=== PATIENT | female | born 1980 | race Caucasian/White ===

== ENCOUNTER 2016-10-11 09:29 | Emergency (ER) | payer SELFPAY ==
[~2016-10-11] VITALS: Ht 157.5 cm; Wt 56.7 kg
[~2016-10-11 09:29] MED LIST: CODE118S2 PO; CYCL10TA9 PO; FLUT9.9S NSEACH; HYDR-1231 PO; LEVO500T2 PO; LORA-404 PO; NAPR-243 PO; NAPR-684 PO; SULF1TAB35 PO; Z PAK; Z-Pak
[2016-10-11 09:47] VITALS: BP 114/78
--- NOTE | 2016-10-11 11:59 | ED Neck-Back Pain/Injury ---
General Chief Complaint: Head/Cervical Problems Stated Complaint: NECK/RIGHT SHOULDER PAIN Nursing Triage Note: Pt c/o pain to R side of neck and shoulder x3-4 days. Pt reports pain has continued to get worse. Nursing Sepsis Screen: No Definite Risk Source of Information: Patient Exam Limitations: No Limitations History of Present Illness Time Seen by Provider: 11:59 Initial Comments 35-year-old female patient presents to the emergency department with complaints of bilateral shoulder and neck pain/muscle spasms. Onset 4 days ago. Denies known injury. 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 Has been under increased stress at work. Location: Paraspinous Muscles ((neck)) Timing/Duration: 3-4 Days, Getting Worse Pain/Injury Location: Upper Extremity (bilateral shoulders), Neck Radiation: Other (denies radiation) Method of Injury: Unknown Modifying Factors: Improves With Immobilization, Worse With Movement, Worse With Pain Medication (minimal improvement with Aleve taken at 0700 today.) Associated Symptoms: muscle spasms, No fever, No weakness, No numbness in legs/ feet, No tingling in legs/feet, No sensory/motor loss, No lower back pain, No loss of bladder control, No loss of bowel control Allergies and Home Medications Allergies Coded Allergies: No Known Drug Allergies (Unverified , 04/05/14) Home Medications Cyclobenzaprine HCl 10 Mg Tablet, 10 MG PO Q8H PRN for SPASMS, #14 Ref 0 Prescribed by: FLAVIA REDMAN on 10/11/16 1334 Fluticasone Propionate 9.9 Ml [place].susp, 2 SPRAYS(DNU) NSEACH DAILY, #1 Ref 11 Prescribed by: EDUARDO LIVINGSTON on 02/10/16 1159 Lorazepam 0.5 Mg Tablet, 0.5 MG PO BID PRN for ANXIETY, #10 Prescribed by: BLANCHE MILES on 01/14/16 1210 Prednisone 20 Mg Tab, 40 MG PO DAILY, #10 Ref 0 Prescribed by: FLAVIA REDMAN on 10/11/16 1334 Tramadol HCl 50 Mg Tablet, 50 MG PO Q4H PRN for PAIN, #14 Ref 0 Prescribed by: FLAVIA REDMAN on 10/11/16 1334 Constitutional: No chills, No diaphoresis, No fever, No malaise EENTM: no symptoms reported Respiratory: no symptoms reported Cardiovascular: no symptoms reported Gastrointestinal: no symptoms reported Genitourinary: no symptoms reported Musculoskeletal: No back pain, muscle pain (bilateral shoulders and neck), muscle stiffness (bilateral shoulders and neck), neck pain (paraspinous neck pain) Skin: No lesions, No lumps, No rash Psychiatric/Neurological: Denies Headache (intermittent mild headache. denies current headache. ), Denies Numbness, Denies Paresthesia, Denies Tingling, Denies Weakness All Other Systems Reviewed Negative Unless Noted: Yes (Negative excepted noted.) Past Cehwjxi-Aiwvbk-Mhvxpn Hx Patient Social History Alcohol Use: Occasionally Uses Recreational Drug Use: No Smoking Status: Current Everyday Smoker Type Used: Cigarettes Recent Foreign Travel: No Contact w/Someone Who Travel: No Recent Infectious Disease Expo: No Recent Hopitalizations: Yes (QUICK CARE VISIT) Immunizations Up To Date Tetanus Booster (TDap): Unknown Seasonal Allergies Seasonal Allergies: Yes Surgeries HX Surgeries: No Respiratory Hx Respiratory Disorders: Yes (asthma as child only, tobaccoism) Cardiovascular Hx Cardiac Disorders: No Neurological Hx Neurological Disorders: No Reproductive System Hx Reproductive Disorders: No Female Reproductive Disorders: Ovarian Cyst Genitourinary Hx Genitourinary Disorders: No Gastrointestinal Hx Gastrointestinal Disorders: No Musculoskeletal Hx Musculoskeletal Disorders: No Endocrine Hx Endocrine Disorders: No Endocrine Disorders: Adrenal Disease HEENT HX ENT Disorders: Yes (sinus infections) Cancer Hx Cancer: No Psychosocial Hx Psychiatric Problems: Yes (past hx anxiety with post- depression) Behavioral Health Disorders: Anxiety Integumentary HX Skin/Integumentary Disorder: No Blood Transfusions Hx Blood Disorders: No Reviewed Nursing Assessment Reviewed/Agree w Nursing PMH: Yes Family Medical History Significant Family History: Cancer, Diabetes Physical Exam Vital Signs Vital Sign - Last 12Hours 10/11/16 09:47 Temp 98.9 Pulse 70 Resp 18 B/P (MAP) 114/78 Pulse Ox 100 O2 Delivery Room Air Capillary Refill : Less Than 3 Seconds General Appearance: No Apparent Distress, WD/WN HEENT: PERRL/EOMI, Pharynx Normal Neck: Supple, Limited Range of Motion ((patient reports muscles "pulling" with all ROM.), Tender Lateral, No Tender Midline, Other (muscle spasm and tenderness posterior lateral neck.) Cardiovascular: Regular Rate, Rhythm, No Murmur, Normal Peripheral Pulses Respiratory: Lungs Clear, Normal Breath Sounds, No Respiratory Distress Back: Normal Inspection, No Vertebral Tenderness Extremity: Normal Capillary Refill, Normal Range of Motion, Other (bilateral superior shoulder tenderness with muscle spasm.) Neurologic/Psychiatric: Alert, Oriented x3, No Motor/Sensory Deficits, Normal 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, 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 Norm as Tested Skin: Normal Color, Warm/Dry Progress/Results/Core Measures Results/Orders Lab Results Laboratory Tests Test 10/11/16 11:27 Range/Units Urine Opiates Screen NEGATIVE NEGATIVE Urine Oxycodone Screen NEGATIVE NEGATIVE Urine Methadone Screen NEGATIVE NEGATIVE Urine Propoxyphene Screen NEGATIVE NEGATIVE Urine Barbiturates Screen NEGATIVE NEGATIVE Ur Tricyclic Antidepressants Screen NEGATIVE NEGATIVE Urine Phencyclidine Screen NEGATIVE NEGATIVE Urine Amphetamines Screen NEGATIVE NEGATIVE Urine Methamphetamines Screen NEGATIVE NEGATIVE Urine Benzodiazepines Screen NEGATIVE NEGATIVE Urine Cocaine Screen NEGATIVE NEGATIVE Urine Cannabinoids Screen NEGATIVE NEGATIVE My Orders Orders - FLAVIA REDMAN Urine Bedside (10/11/16 11:16) Drug Screen Stat (Urine) (10/11/16 11:19) Cyclobenzaprine Tablet (Flexeril Tablet) (10/11/16 12:17) Ketorolac Injection (Toradol Injection) (10/11/16 12:17) Cervical Spine 3 Views Or Less (10/11/16 12:17) Vital Signs/I&O Vital Sign - Last 12Hours 10/11/16 10/11/16 09:47 12:59 Temp 98.9 98.9 Pulse 70 Resp 18 B/P (MAP) 114/78 Pulse Ox 100 O2 Delivery Room Air Blood Pressure Mean: 90 Diagnostic Imaging Diagonstic Imaging: Xray Plain Films/CT/US/NM/MRI: c-spine Comments FINDINGS: The there is reversal of the lordotic curvature in the cervical spine. The alignment of the posterior spinal line however is satisfactory. The vertebral body heights and disc heights are preserved. There is suggestion of minimal posterior osteophyte formation at C5/6 level. The lateral masses of C1 and C2 have normal alignment. The pre-vertebral soft tissues appear unremarkable. IMPRESSION: Question of posterior osteophytes at C5/6 level is seen. If symptoms persist further evaluation with MRI of the cervical spine would be of benefit. Reversal of the lordotic curvature. Dictated by: Dictated on workstation # [id number] Reviewed: Reviewed by Me (radiology report reviewed by me) Departure Communication Progress Notes Diagnostic findings discussed with the patient. Patient reports feeling better with medications. Proceed with discharge to home. Patient ambulated from the emergency department without difficulty. Impression Impression: Primary Impression: [place], acute Disposition: 01 HOME, SELF-CARE Condition: Improved Departure-Patient Inst. Decision time for Depature: 12:30 Referrals: SACHI HONEYCUTT DO (PCP/Family) Primary Care Physician Patient Instructions: [place] (DC) Add. Discharge Instructions: All discharge instructions reviewed with patient and/or family. Voiced understanding. Medications as instructed. Tylenol Extra Strength [id number] as directed for pain. Ibuprofen 800 mg by mouth every 8 hours as needed for pain. Ice packs or a heating pad as needed for pain. No lifting, pushing, pulling, twisting, bending, climbing 7 days. Then increase activity slowly. Follow-up with Dr. Honeycutt if no improvement in symptoms in 7-10 days. Return to the emergency department for worsened pain, numbness, weakness, bowel incontinence, bladder incontinence, or any other concerns. Scripts Tramadol HCl (Tramadol HCl) 50 Mg Tablet 50 MG PO Q4H Y for PAIN, #14 TAB 0 Refills Prov: FLAVIA REDMAN 10/11/16 Cyclobenzaprine HCl (Cyclobenzaprine HCl) 10 Mg Tablet 10 MG PO Q8H Y for SPASMS, #14 TAB 0 Refills Prov: FLAVIA REDMAN 10/11/16 Prednisone (Prednisone) 20 Mg Tab 40 MG PO DAILY, #10 TAB 0 Refills Prov: FLAVIA REDMAN 10/11/16 Work/School Note: Work Release Form Date Seen in the Emergency Department: Oct 11, 2016 Return to Work: Oct 12, 2016 Other Restrictions Listed Below: no lifting, pushing, pulling, twisting, bending, or climbing x 7 days. FLAVIA REDMAN Oct 11, 2016 11:59
[2016-10-11] MEDS ORDERED: KETOROLAC 60 MG/2 ML VIAL IM STA (12:17)
[2016-10-11] MEDS ORDERED: CYCLOBENZAPRINE 10 MG (FLEXERIL) TAB PO STA (12:17)
--- NOTE | 2016-10-11 13:12 | Diagnostic Imaging Report ---
3 views of the cervical spine. INDICATION: Right-sided neck pain. COMPARISON: 04/05/14. FINDINGS: The there is reversal of the lordotic curvature in the cervical spine. The alignment of the posterior spinal line however is satisfactory. The vertebral body heights and disc heights are preserved. There is suggestion of minimal posterior osteophyte formation at C5/6 level. The lateral masses of C1 and C2 have normal alignment. The pre-vertebral soft tissues appear unremarkable. IMPRESSION: Question of posterior osteophytes at C5/6 level is seen. If symptoms persist further evaluation with MRI of the cervical spine would be of benefit. Reversal of the lordotic curvature. Dictated by: Dictated on workstation # [id number]
[2016-10-11] MEDS ORDERED: TRAM50TA2 PO (13:34)
[2016-10-11] MEDS ORDERED: PRD20T PO (13:34)
[2016-10-11] MEDS ORDERED: CYCL10TA9 PO (13:34)
--- OUTSIDE RECORDS SUMMARY | 2016-10-25 20:49 | XMS REPORT | Continuity of Care Document ---
Author Author [facility] Organization [facility] Address Unknown Phone Unavailable Allergies Active Description Code Type Severity Reaction Onset Reported/Identified Relationship to Patient Clinical Status Yes No Known Drug Allergies [id number] Drug Allergy Unknown N/ A 04/05/2014 Medications Problems Date Dx Coded Attending Type Code Diagnosis Diagnosed By 02/09/2014 BLANCHE MILES APRN Ot 845.00 02/09/2014 BLANCHE MILES APRN Ot E000.8 02/09/2014 BLANCHE MILES APRN Ot E006.1 02/09/2014 BLANCHE MILES APRN Ot E927.0 04/05/2014 FELIX DO, CORA K Ot 840.9 04/05/2014 FELIX DO, CORA K Ot 847.0 04/05/2014 FELIX DO, CORA K Ot 959.09 04/05/2014 FELIX DO, CORA K Ot E000.8 04/05/2014 FELIX DO, CORA K Ot E812.0 06/17/2014 FELIX DO, CORA K Ot 558.9 06/17/2014 FELIX DO, CORA K Ot 723.1 06/17/2014 FELIX DO, CORA K Ot 724.1 07/20/2014 CHIRAG OROZCO MD Ot 465.9 07/20/2014 CHIRAG OROZCO MD Ot 786.2 03/12/2015 CHIRAG OROZCO MD Ot 465.9 03/12/2015 CHIRAG OROZCO MD Ot 786.2 09/08/2015 BLANCHE MILES APRN Ot F17.210 NICOTINE DEPENDENCE, CIGARETTES, UNCOMPL 09/08/2015 BLANCHE MILES APRN Ot N39.0 URINARY TRACT INFECTION, SITE NOT SPECIF 01/14/2016 BLANCHE MILES APRN Ot F41.9 ANXIETY DISORDER, UNSPECIFIED 01/15/2016 BLANCHE MILES APRN Ot F41.9 ANXIETY DISORDER, UNSPECIFIED 02/04/2016 BLANCHE MILES APRN Ot F41.9 ANXIETY DISORDER, UNSPECIFIED 02/10/2016 EDUARDO WATKINS MD Ot F17.210 NICOTINE DEPENDENCE, CIGARETTES, UNCOMPL 02/10/2016 EDUARDO WATKINS MD Ot J01.01 ACUTE RECURRENT MAXILLARY SINUSITIS 02/10/2016 EDUARDO WATKINS MD Ot K11.7 DISTURBANCES OF SALIVARY SECRETION 02/10/2016 EDUARDO WATKINS MD Ot N39.0 URINARY TRACT INFECTION, SITE NOT SPECIF 02/10/2016 EDUARDO WATKINS MD Ot R53.1 WEAKNESS 02/10/2016 EDUARDO WATKINS MD Ot R53.83 OTHER FATIGUE 02/10/2016 EDUARDO WATKINS MD Ot R63.4 ABNORMAL WEIGHT LOSS 02/16/2016 EDUARDO WATKINS MD Ot F17.210 NICOTINE DEPENDENCE, CIGARETTES, UNCOMPL 02/16/2016 EDUARDO WATKINS MD Ot J01.81 OTHER ACUTE RECURRENT SINUSITIS 02/16/2016 EDUARDO WATKINS MD Ot J32.9 CHRONIC SINUSITIS, UNSPECIFIED 02/16/2016 EDUARDO WATKINS MD Ot J34.2 DEVIATED NASAL SEPTUM 02/16/2016 EDUARDO WATKINS MD Ot J34.89 OTHER SPECIFIED DISORDERS OF NOSE AND NA 02/17/2016 EDUARDO WATKINS MD Ot F17.210 NICOTINE DEPENDENCE, CIGARETTES, UNCOMPL 02/17/2016 EDUARDO WATKINS MD Ot J01.81 OTHER ACUTE RECURRENT SINUSITIS 02/17/2016 EDUARDO WATKINS MD Ot J32.9 CHRONIC SINUSITIS, UNSPECIFIED 02/17/2016 EDUARDO WATKINS MD Ot J34.2 DEVIATED NASAL SEPTUM 02/17/2016 EDUARDO WATKINS MD Ot J34.89 OTHER SPECIFIED DISORDERS OF NOSE AND NA 10/11/2016 FLAIVA ROACH Ot F17.210 NICOTINE DEPENDENCE, CIGARETTES, UNCOMPL 10/11/2016 FLAVIA ROACH Ot M43.6 TORTICOLLIS 10/11/2016 FLAVIA ROACH Ot M54.2 CERVICALGIA 10/12/2016 FLAVIA ROACH Ot F17.210 NICOTINE DEPENDENCE, CIGARETTES, UNCOMPL 10/12/2016 FLAVIA ROACH Ot M43.6 TORTICOLLIS 10/12/2016 FLAVIA ROACH Ot M54.2 CERVICALGIA Procedures Results Test Result Range Bacterial throat culture - 02/10/16 10:46 Bacterial throat culture NBS NRG Bacterial urine culture - 02/10/16 10:57 URINE CULTURE RESULTS MORE THAN 3 ISOLATES NRG Complete urinalysis with reflex to culture - 02/16/16 13:42 Urine color determination YELLOW NRG Urine clarity determination CLEAR NRG Urine pH measurement by test strip 6.5 5 -9 Specific gravity of urine by test strip 1.015 1.016-1.022 Urine protein assay by test strip, semi-quantitative NEGATIVE NEGATIVE Urine glucose detection by automated test strip NEGATIVE NEGATIVE Erythrocytes detection in urine sediment by light microscopy NEGATIVE NEGATIVE Urine ketones detection by automated test strip NEGATIVE NEGATIVE Urine nitrite detection by test strip NEGATIVE NEGATIVE Urine total bilirubin detection by test strip NEGATIVE NEGATIVE Urine urobilinogen measurement by automated test strip (mass/volume) NORMAL NORMAL Urine leukocyte esterase detection by dipstick 1+ NEGATIVE Automated urine sediment erythrocyte count by microscopy (number/high power field) NONE NRG Automated urine sediment leukocyte count by microscopy (number/high power field ) [HPF] NRG Bacteria detection in urine sediment by light microscopy NEGATIVE NRG Squamous epithelial cells detection in urine sediment by light microscopy 2-5 NRG Crystals detection in urine sediment by light microscopy NONE NRG Casts detection in urine sediment by light microscopy NONE NRG Mucus detection in urine sediment by light microscopy NEGATIVE NRG Complete urinalysis with reflex to culture NO NRG Urine drug screening test - 10/11/16 11:27 Urine phencyclidine detection by screening method NEGATIVE NEGATIVE Urine benzodiazepines detection by screening method NEGATIVE NEGATIVE Urine cocaine detection NEGATIVE NEGATIVE Urine amphetamines detection by screening method NEGATIVE NEGATIVE Urine methamphetamine detection by screening method NEGATIVE NEGATIVE Urine cannabinoids detection by screening method NEGATIVE NEGATIVE Urine opiates detection by screening method NEGATIVE NEGATIVE Urine barbiturates detection NEGATIVE NEGATIVE Screening urine tricyclic antidepressants detection NEGATIVE NEGATIVE Urine methadone detection by screening method NEGATIVE NEGATIVE Urine oxycodone detection NEGATIVE NEGATIVE Urine propoxyphene detection NEGATIVE NEGATIVE Encounters ACCT No. Visit Date/Time Discharge Status Pt. Type Provider Facility Loc./Unit Complaint [id number] 10/11/2016 09:34:00 2016 13:40:00 DIS Emergency FLAVIA ROACH [facility] ER NECK/RIGHT SHOULDER PAIN [id number] 02/16/2016 13:33:00 2015 15:05:00 DIS Emergency EDUARDO WATKINS MD [facility] ER UTI SYMPTOMS [id number] 02/10/2016 10:27:00 2015 12:13:00 DIS Emergency ROLAND PERALTA, EDUARDO Graff [facility] ER DIARRHEA WEAKNESS/FATIGUE COUGH/CONGESTION [id number] 01/14/2016 11:04:00 2015 12:26:00 DIS Emergency BLANCHE MILES APRN [facility] ER DIZZINESS [id number] 09/08/2015 15:45:00 2015 18:55:00 DIS Emergency BLANCHE MILES APRN [facility] ER ABD PAIN [id number] 03/12/2015 12:16:00 2014 13:22:00 DIS Emergency CHIRAG OROZCO MD [facility] ER [id number] 07/20/2014 09:02:00 2014 09:43:00 DIS Emergency CHIRAG OROZCO MD [facility] ER [id number] 06/17/2014 03:02:00 2013 04:40:00 DIS Emergency CORA WASHINGTON DO [facility] ER [id number] 04/05/2014 09:10:00 2013 11:08:00 DIS Emergency CORA WASHINGTON DO [facility] ER [id number] 02/09/2014 14:27:00 2013 16:06:00 DIS Emergency BLANCHE MILES APRN [facility] ER [id number] 04/26/2016 19:37:00 ACT Outpatient VENU LAMA [facility] QUICK COUGH [id number] 01/01/2016 12:50:00 ACT Outpatient VENU LAMA [facility] QUICK
== END 2016-10-11 13:40 | disposition home or self-care (01) ==
LOC: EDUNIT# 09:29 → ER 09:34
DX: M43.6 Torticollis (principal); F17.210 Nicotine dependence, cigarettes, uncomplicated
CPT/HCPCS: 72040; 80306; 96372; 99281

== ENCOUNTER 2018-12-04 11:53 | Emergency (ER) | payer MEDICAID, OTHER ==
[~2018-12-04] VITALS: Ht 157.5 cm; Wt 59.0 kg
[~2018-12-04 11:53] MED LIST changes: +PRD20T PO; +TRAM50TA2 PO
[2018-12-04] MEDS ORDERED: RT-ALBUTEROL/IPRATROPIUM 3 ML (DUONEB) VIAL INH ONE (12:15)
[2018-12-04] MEDS ORDERED: RT-ALBUINH IH (12:16)
[2018-12-04] MEDS ORDERED: PRD10T PO (12:16)
--- NOTE | 2018-12-04 12:17 | ED General ---
General Stated Complaint: WHEEZING, TROUBLE BREATHING IN SLEEP Source of Information: Patient Exam Limitations: No Limitations History of Present Illness Date Seen by Provider: December 04, 2018 Time Seen by Provider: 12:11 Initial Comments To ER with wheezing for the past few days, she does smoke but she's been trying to reduce that. She states that she's had some nasal congestion that she attributed to a sinus infection for the past few days as well. States that she had an episode during the night where she "quit breathing" and had to be awakened by her boyfriend also has had some pain in her mid back both sides for about 2 months. Has not sought treatment or evaluation from primary care for this. Timing/Duration: Getting Worse, Intermittent Severity: Moderate Allergies and Home Medications Allergies Coded Allergies: No Known Drug Allergies (Unverified , 04/05/14) Home Medications Cyclobenzaprine HCl 10 Mg Tablet, 10 MG PO Q8H PRN for SPASMS Prescribed by: FLAVIA REDMAN on 10/11/16 1334 Fluticasone Propionate 9.9 Ml [place].susp, 2 SPRAYS(DNU) NSEACH DAILY Prescribed by: EDUARDO LIVINGSTON on 02/10/16 1159 Lorazepam 0.5 Mg Tablet, 0.5 MG PO BID PRN for ANXIETY Prescribed by: BLANCHE MILES on 01/14/16 1210 Prednisone 20 Mg Tab, 40 MG PO DAILY Prescribed by: FLAVIA REDMAN on 10/11/16 1334 Tramadol HCl 50 Mg Tablet, 50 MG PO Q4H PRN for PAIN Prescribed by: FLAVIA REDMAN on 10/11/16 1334 Patient Home Medication List Home Medication List Reviewed: Yes Review of Systems Review of Systems Constitutional: see HPI EENTM: see HPI, nose congestion Respiratory: see HPI; No cough; wheezing Cardiovascular: no symptoms reported Genitourinary: no symptoms reported Musculoskeletal: no symptoms reported Skin: no symptoms reported Psychiatric/Neurological: No Symptoms Reported Hematologic/Lymphatic: No Symptoms Reported Past Suatyci-Qhybao-Vcvrli Hx Patient Social History Type Used: Cigarettes Recent Foreign Travel: No Contact w/Someone Who Travel: No Recent Hopitalizations: Yes (QUICK CARE VISIT) Immunizations Up To Date Tetanus Booster (TDap): Unknown Seasonal Allergies Seasonal Allergies: Yes Past Medical History Reproductive Disorders: No Female Reproductive Disorders: Ovarian Cyst Adrenal Disease Anxiety Family Medical History Cancer, Diabetes Physical Exam Vital Signs Capillary Refill : Height, Weight, BMI Height: 5'2.00" Weight: 125lbs. oz. 56.116417bf; 23.41 BMI Method:Stated General Appearance: No Apparent Distress, WD/WN Eyes: Bilateral Eye Normal Inspection, Bilateral Eye PERRL HEENT: PERRL/EOMI, TMs Normal, Normal ENT Inspection, Pharynx Normal Neck: Full Range of Motion, Normal Inspection Respiratory: No Accessory Muscle Use, No Respiratory Distress, Expiration, Wheezing Gastrointestinal: Non Tender, Soft Neurologic/Psychiatric: Alert, Oriented x3 Skin: Normal Color, Warm/Dry Progress/Results/Core Measures Suspected Sepsis SIRS Temperature: Pulse: Respiratory Rate: Blood Pressure / Mean: Results/Orders My Orders Orders - BLANCHE MILES APRN Chest Pa/Lat (2 View) (12/04/18 12:09) Albuterol/Ipra Inhalation Soln (Duoneb I (12/04/18 12:15) Svn Small Volume Nebulizer (12/04/18 12:09) Vital Signs/I&O Capillary Refill : Departure Impression Primary Impression: Reactive airway disease Qualified Codes: J45.901 - Unspecified asthma with (acute) exacerbation Additional Impression: Nasal congestion Disposition: 01 HOME, SELF-CARE Condition: Stable Departure-Patient Inst. Decision time for Depature: 12:14 Referrals: NO,LOCAL PHYSICIAN (PCP) Primary Care Physician ANTHONY RANDOLPH BETHANY N MD GAULT, HOLLY R MD Patient Instructions: Wheezing Add. Discharge Instructions: 1. Steroids as directed which should help with the nasal congestion as well as the wheezing. Use the inhaler as directed. Follow-up with [facility] within the next week for further evaluation of symptoms. If you fail to improve then antibiotics may be added. Scripts Prednisone (Prednisone) 10 Mg Tab 40 MG PO DAILY, #16 EACH Prov: BLANCHE MILES APRN 12/04/18 Albuterol Sulfate (PROAIR HFA) 1 Puff Puff 2 PUFF IH Q4H PRN for WHEEZING, #1 PUFF 1 PUFF = 90 MCG Prov: BLANCHE MILES APRN 12/04/18 Work/School Note: Work Release Form Date Seen in the Emergency Department: December 04, 2018 Return to Work: December 05, 2018 BLANCHE MILES APRN December 04, 2018 12:17
--- NOTE | 2018-12-04 12:50 | Diagnostic Imaging Report ---
INDICATION: Difficulty breathing and wheezing, history of smoking. PA and lateral chest obtained at 1234 hours p.m. and compared to 02/10/2016. Heart and mediastinal silhouette are normal in appearance. The lungs are clear. There is no pneumothorax or pleural fluid. IMPRESSION: Negative chest. Dictated by: Dictated on workstation # [id number]
[2018-12-04 13:02] VITALS: BP 121/80
== END 2018-12-04 13:02 | disposition home or self-care (01) ==
LOC: EDUNIT# 11:53 → ER 11:55
DX: J45.909 Unspecified asthma, uncomplicated (principal); F41.9 Anxiety disorder, unspecified; Z79.51 Long term (current) use of inhaled steroids; Z79.52 Long term (current) use of systemic steroids; Z87.448 Personal history of other diseases of urinary system
CPT/HCPCS: 71046; 94640

== ENCOUNTER 2019-02-24 16:16 | Emergency (ER) | payer MEDICAID ==
[~2019-02-24] VITALS: Ht 157.5 cm; Wt 54.4 kg
[~2019-02-24 16:16] MED LIST changes: +PRD10T PO; +RT-ALBUINH IH
--- OUTSIDE RECORDS SUMMARY | 2019-02-24 16:21 | XMS REPORT | Continuity of Care Document ---
Author Organization Unknown Address Unknown Phone Unavailable Allergies Active Description Code Type Severity Reaction Onset Reported/Identified Relationship to Patient Clinical Status Yes No Known Drug Allergies [id number] Drug Allergy Unknown N/A 04/05/2014 Medications There is no data. Problems Date Dx Coded Attending Type Code [...] SPECIFIED DISORDERS OF NOSE AND NA 10/11/2016 FLAVIA ROACH Ot F17.210 NICOTINE DEPENDENCE, CIGARETTES, UNCOMPL 10/11/2016 FLAVIA ROACH Ot M43.6 TORTICOLLIS 10/11/2016 FLAVIA ROACH Ot M54.2 CERVICALGIA 10/12/2016 FLAVIA ROACH Ot F17.210 NICOTINE DEPENDENCE, CIGARETTES, UNCOMPL 10/12/2016 FLAVIA ROACH Ot M43.6 TORTICOLLIS 10/12/2016 FLAVIA ROACH Ot M54.2 CERVICALGIA 12/04/2018 BLANCHE MILES APRN Ot F41.9 ANXIETY DISORDER, UNSPECIFIED 12/04/2018 BLANCHE MILES APRN Ot J45.909 UNSPECIFIED ASTHMA, UNCOMPLICATED 12/04/2018 BLANCHE MILES APRN Ot R06.2 WHEEZING 12/04/2018 BLANCHE MILES APRN Ot Z79.51 USP (CURRENT) USE OF INHALED STERO 12/04/2018 BLANCHE MILES APRN Ot Z79.52 USP (CURRENT) USE OF SYSTEMIC STER 12/04/2018 BLANCHE MILES APRN Ot Z87.448 PERSONAL HISTORY OF OTHER DISEASES OF UR 12/06/2018 BLANCHE MILES APRN Ot F41.9 ANXIETY DISORDER, UNSPECIFIED 12/06/2018 BLANCHE MILES APRN Ot J45.909 UNSPECIFIED ASTHMA, UNCOMPLICATED 12/06/2018 BLANCHE MILES APRN Ot R06.2 WHEEZING 12/06/2018 BLANCHE MILES APRN Ot Z79.51 USP (CURRENT) USE OF INHALED STERO 12/06/2018 BLANCHE MILES APRN Ot Z79.52 USP (CURRENT) USE OF SYSTEMIC STER 12/06/2018 BLANCHE MILES APRN Ot Z87.448 PERSONAL HISTORY OF OTHER DISEASES OF UR Procedures There is no data. Results Test Result Range Bacterial throat culture - 02/10/16 10:46 Bacterial throat culture [facility] Bacterial urine culture - 02/10/16 10:57 URINE CULTURE RESULTS MORE THAN 3 ISOLATES [facility] Complete urinalysis with reflex to culture - 02/16/16 13:42 Urine color determination YELLOW NRG Urine clarity determination CLEAR NR Urine pH measurement by test strip 6.5 5-9 Specific gravity of urine by test strip [...] sediment leukocyte count by microscopy (number/high power field) [HPF] NRG Bacteria detection in urine sediment [...] Status Pt. Type Provider Facility Loc./Unit Complaint [id number] 12/04/2018 11:55:00 12/04/2018 13:02:00 DIS Emergency BLANCHE MILES APRN [facility] ER WHEEZING, TROUBLE BREATHING IN SLEEP [id number] 10/11/2016 09:34:00 10/11/2016 13:40:00 DIS Emergency FLAVIA ROACH [facility] ER NECK/RIGHT SHOULDER PAIN [id number] 04/26/2016 19:37:00 04/26/2016 23:59:59 CLS Outpatient VENU LAMA [facility] QUICK COUGH [id number] 02/16/2016 13:33:00 02/16/2016 15:05:00 DIS Emergency EDUARDO WATKINS MD [facility] ER UTI SYMPTOMS [id number] 02/10/2016 10:27:00 02/10/2016 12:13:00 DIS Emergency EDUARDO WATKINS MD [facility] ER DIARRHEA WEAKNESS/FATIGUE COUGH/CONGESTION [id number] 01/14/2016 11:04:00 01/14/2016 12:26:00 DIS Emergency BLANCHE MILES APRN [facility] ER DIZZINESS [id number] 01/01/2016 12:50:00 01/01/2016 23:59:59 CLS Outpatient VENU LAMA [facility] QUICK [id number] 09/08/2015 15:45:00 09/08/2015 18:55:00 DIS Emergency BLANCHE MILES APRN [facility] ER ABD PAIN [id number] 03/12/2015 12:16:00 03/12/2015 13:22:00 DIS Emergency CHIRAG OROZCO MD [facility] ER [id number] 07/20/2014 09:02:00 07/20/2014 09:43:00 DIS Emergency CHIRAG OROZCO MD [facility] ER [id number] 06/17/2014 03:02:00 06/17/2014 04:40:00 DIS Emergency CORA WASHINGTON DO K [facility] ER [id number] 04/05/2014 09:10:00 04/05/2014 11:08:00 DIS Emergency CORA WASHINGTON DO K [facility] ER [id number] 02/09/2014 14:27:00 02/09/2014 16:06:00 DIS Emergency BLANCHE MILES APRN [facility] ER
--- NOTE | 2019-02-24 17:11 | ED EENT ---
History of Present Illness General Chief Complaint: Dental Problems/Pain Stated Complaint: R SIDE DENTAL PAIN/JAW SWELLING Nursing Triage Note: PT AMBULATE TO ROOM 06 WITH CO RIGHT JAW PAIN STARTING LAST NIGHT. PT STATES SHE CANNOT GET INTO HER DENTIST. PT STATES SHE HAS HAD N/V AND A FEVER AT HOME BUT HAD NOT CHECKED HER TEMP. Source: patient, family Exam Limitations: no limitations History of Present Illness Date Seen by Provider: Feb 24, 2019 Time Seen by Provider: 17:05 Initial Comments This 30-year-old white female presents with an impacted wisdom tooth to the right maxillary region. Patient has experienced increasing pain since last night to the area. Patient has had the impacted wisdom tooth evaluated in the past and is planning on having it extracted. Allergies and Home Medications Allergies Coded Allergies: ciprofloxacin (Unverified Allergy, Severe, Shortness of Breath, 02/24/19) pt states throat swelling and difficulty breathing when given cipro in [place] Home Medications No Active Prescriptions or Reported Meds Patient Home Medication List Home Medication List Reviewed: Yes Review of Systems Review of Systems Constitutional: No chills, No fever Eyes: Denies Blindness Ears: Denies Dizziness Nose: denies clots Mouth: denies clots; pain (third molar right maxillary) Throat: no symptoms reported; denies swelling, denies neck stiffness, denies painful swallowing Respiratory: no symptoms reported; No cough Cardiovascular: no symptoms reported; No chest pain Gastrointestinal: no symptoms reported; No abdominal pain, No nausea, No vomiting Musculoskeletal: no symptoms reported Skin: no symptoms reported Neurological: No Symptoms Reported Hematologic/Lymphatic: No Symptoms Reported Immunological/Allergic: no symptoms reported Past Uiyctbr-Vlmwus-Naeika Hx Past Med/Social Hx: Reviewed Nursing Past Med/Soc Hx Patient Social History Alcohol Use: Regular Use Number of Drinks Today: AA Alcohol Beverage of Choice: Beer Recreational Drug Use: No Smoking Status: Current Everyday Smoker Type Used: Cigarettes 2nd Hand Smoke Exposure: Yes Recent Foreign Travel: No Contact w/Someone Who Travel: No Recent Infectious Disease Expo: No Recent Hopitalizations: Yes Physical Abuse: No Sexual Abuse: No Mistreated: No Fear: No Immunizations Up To Date Tetanus Booster (TDap): Unknown Seasonal Allergies Seasonal Allergies: Yes Past Medical History Surgeries: No Respiratory: Yes (asthma as child only) Cardiac: No Neurological: No Reproductive Disorders: No Female Reproductive Disorders: Ovarian Cyst Gastrointestinal: No Musculoskeletal: No Endocrine: No Adrenal Disease Cancer: No Psychosocial: Yes (past hx anxiety with post- depression) Anxiety Integumentary: No Blood Disorders: No Family Medical History Cancer, Diabetes Physical Exam Vital Signs Vital Signs - First Documented 02/24/19 16:22 Temp 98.9 Pulse 92 Resp 14 B/P (MAP) 120/89 (99) Pulse Ox 100 O2 Delivery Room Air Height, Weight, BMI Height: 5'2.00" Weight: 120lbs. oz. 54.470953un; 23.41 BMI Method:Stated General Appearance: WD/WN, mild distress Eyes: bilateral eye normal inspection Ears: bilateral ear auricle normal Nose: normal inspection Mouth/Throat: other (impacted wisdom tooth right maxillary. The tooth is tend er to palpation there is no abscess) Neck: non-tender, supple Cardiovascular: regular rate, rhythm Respiratory: lungs clear, normal breath sounds Gastrointestinal: normal bowel sounds, soft Neurologic/Psychiatric: no motor/sensory deficits, alert Skin: normal color, warm/dry Progress/Results/Core Measures Results/Orders Vital Signs/I&O 02/24/19 16:22 Temp 98.9 Pulse 92 Resp 14 B/P (MAP) 120/89 (99) Pulse Ox 100 O2 Delivery Room Air Blood Pressure Mean: 99 Progress Progress Note : Time: 17:09 Progress Note The patient will follow-up with her oral surgeon for extraction. I placed the patient on amoxicillin liquid and Tylenol elixir with codeine and she cannot typically swallow pills. Departure Impression Primary Impression: Tooth pain Disposition: 01 HOME, SELF-CARE Condition: Unchanged Departure-Patient Inst. Decision time for Depature: 17:10 Referrals: NO,LOCAL PHYSICIAN (PCP) Primary Care Physician Patient Instructions: Dental Pain Add. Discharge Instructions: Amoxicillin tolerance with codeine as prescribed. Follow-up with your oral surgeon with a phone call morning. Return if any problems or questions. All discharge instructions reviewed with patient and/or family. Voiced understanding. Scripts Acetaminophen with Codeine (Acetamin-Codein 300-30 mg/12.5) 12.5 Ml Solution 12.5 ML PO Q6H for Pain for 10 Days, EA Prov: APRYL DRISCOLL MD 02/24/19 Amoxicillin (Amoxicillin) 400 Mg/5 Ml Susp.recon 800 MG PO BID for 10 Days, #60 ML 0 Refills Prov: APRYL DRISCOLL MD 02/24/19 APRYL DRISCOLL MD Feb 24, 2019 17:11
[2019-02-24] MEDS ORDERED: AMOX400S9 PO (17:15)
[2019-02-24] MEDS ORDERED: ACET12.5 PO (17:16)
[2019-02-24 17:23] VITALS: BP 104/83
== END 2019-02-24 17:20 | disposition home or self-care (01) ==
LOC: EDUNIT# 16:16 → ER 16:17
DX: K08.89 Other specified disorders of teeth and supporting structures (principal); J45.909 Unspecified asthma, uncomplicated; F41.9 Anxiety disorder, unspecified; E27.9 Disorder of adrenal gland, unspecified; F17.210 Nicotine dependence, cigarettes, uncomplicated; Z88.1 Allergy status to other antibiotic agents
CPT/HCPCS: 99282

== ENCOUNTER 2021-08-08 09:45 | Emergency (ER) | payer MEDICAID ==
[~2021-08-08] VITALS: Ht 157.5 cm; Wt 54.4 kg
[~2021-08-08 09:45] MED LIST changes: +ACET12.5 PO; +AMOX400S9 PO; +CYCL10TA25 PO; -SULF1TAB35 PO; +SULF1TAB38 PO; -TRAM50TA2 PO; +TRM50T PO
[2021-08-08 10:04] VITALS: BP 109/77
[2021-08-08] MEDS ORDERED: LIDOCAINE 1% INJ 20 ML VIAL INJ STA (10:12)
[2021-08-08] MEDS ORDERED: cefTRIAXone 1,000 MG VIAL IM STA (10:12)
[2021-08-08] MEDS ORDERED: AMOX400S8 PO (10:18)
--- NOTE | 2021-08-08 10:19 | ED EENT ---
History of Present Illness General Chief Complaint: Dental Problems/Pain Stated Complaint: FACIAL SWELLING; DENTAL PAIN Source: patient History of Present Illness Date Seen by Provider: Aug 08, 2021 Time Seen by Provider: 09:47 Initial Comments 40-year-old female presenting with complaints of pain and swelling to her right upper cheek. She has swelling and pain to the gums of her right upper mouth. She has been having swelling to the lymph nodes in her neck. She recently moved to [place] in the last few weeks and has been under extra stress. She has not seen a dentist recently. She has been using Ibuprofen and warm salt water gargles for her pain. She has been having difficulty sleeping at night due to pain and swelling. She noticed increased swelling to her gums on the right upper side of her mouth this morning and came to see about antibiotics to help with infection and swelling. Timing/Duration: gradual Severity: moderate Location: mouth, facial, dental Prearrival Treatment: over the counter meds Modifying Factors: Worse With Lying Down Associated Symptoms: No change in hearing, No cough, No drooling, No ear drainage; facial pain/swelling (right upper cheek); No fever; malaise; No nasal congestion/drainage, No poor fluid intake, No poor solids intake; sinus infection (feels like she has increased pain and pressure to right cheek and sinus); No sore throat; tooth pain; No voice change Allergies and Home Medications Allergies Coded Allergies: ciprofloxacin (Unverified Allergy, Severe, Shortness of Breath, 02/24/19) pt states throat swelling and difficulty breathing when given cipro in an ed in [place] Patient Home Medication List Home Medication List Reviewed: Yes Amoxicillin/Potassium Clav (Amox Tr-K Clv 400-57/5 Susp) 400 Mg/5 Ml Susp.recon, 10 ML PO BID Prescribed by: BRE CASTANEDA on 08/08/21 1018 Discontinued Medications Acetaminophen with Codeine (Acetamin-Codein 300-30 mg/12.5) 12.5 Ml Solution, 12.5 ML PO Q6H Prescribed by: APRYL DRISCOLL MD on 02/24/19 171 Amoxicillin (Amoxicillin) 400 Mg/5 Ml Susp.recon, 800 MG PO BID Prescribed by: APRYL DRISCOLL MD on 02/24/19 171 Review of Systems Review of Systems Constitutional: No chills, No fever Eyes: No Symptoms Reported Ears: No Symptoms Reported Nose: no symptoms reported Mouth: see HPI Throat: no symptoms reported Respiratory: no symptoms reported Cardiovascular: no symptoms reported Gastrointestinal: no symptoms reported Musculoskeletal: no symptoms reported Skin: No rash Neurological: Headache (right frontal headache and pain in cheek) Past Qfpowjw-Xxdmny-Hlidoa Hx Patient Social History Tobacco Use?: Yes Tobacco type used: Cigarettes Smoking Status: Current Everyday Smoker Substance use?: Unable to obtain Alcohol Use?: Unable to obtain Pt feels they are or have been: No Immunizations Up To Date Tetanus Booster (TDap): Unknown Seasonal Allergies Seasonal Allergies: Yes Past Medical History Surgery/Hospitalization HX: Dental Caries Surgeries: No Respiratory: Yes (asthma as child only) Cardiac: No Neurological: No Reproductive Disorders: No Female Reproductive Disorders: Ovarian Cyst Gastrointestinal: No Musculoskeletal: No Endocrine: No Adrenal Disease Cancer: No Psychosocial: Yes (past hx anxiety with post- depression) Anxiety Integumentary: No Blood Disorders: No Family Medical History Cancer, Diabetes Physical Exam Vital Signs Vital Signs - First Documented 08/08/21 10:04 Temp 36.8 Pulse 82 Resp 16 B/P (MAP) 109/77 (88) Pulse Ox 97 O2 Delivery Room Air Height, Weight, BMI Height: 5'2.00" Weight: 120lbs. oz. 54.733995tp; 23.41 BMI Method:Stated General Appearance: WD/WN, no apparent distress Eyes: bilateral eye PERRL, bilateral eye EOMI Mouth/Throat: dental tenderness, other (tender to palpation maxillary tooth and gums on right side. tender to palpation with swelling to right maxillary sinus and cheek) Neck: non-tender, full range of motion, supple, lymphadenopathy (R), lymphadenopathy (L) Cardiovascular: normal peripheral pulses Neurologic/Psychiatric: alert, oriented x 3 Skin: normal color, warm/dry; No rash Progress/Results/Core Measures Results/Orders My Orders Orders - BRE CASTANEDA MD Ceftriaxone (Rocephin) (08/08/21 10:12) Lidocaine 1% Inj 20 Ml (Xylocaine 1% Inj (08/08/21 10:12) Vital Signs/I&O 08/08/21 10:04 Temp 36.8 Pulse 82 Resp 16 B/P (MAP) 109/77 (88) Pulse Ox 97 O2 Delivery Room Air Progress Progress Note : Progress Note with swelling to face and mouth will start with Rocephin IM shot here and continue augmentin liquid medicine for home. She states she can not swallow pills because of a traumatic choking/swallowing event as a child. Trying to swallow a pill makes her anxious and triggers her gag reflex to make her unable to swallow a pill without taking hours of stress and multiple attempts to swallow. Counseled to keep head elevated when sleeping. Take full course of antibiotics and follow up with Dentist as soon as possible Departure Impression Primary Impression: Dental abscess Additional Impressions: Dental caries Pain, dental Disposition: HOME, SELF-CARE Condition: Stable Departure-Patient Inst. Decision time for Depature: 10:14 Referrals: NO,LOCAL PHYSICIAN (PCP) Primary Care Physician [facility] [phone] DENTAL GROUP Patient Instructions: Tooth Decay ED, Tooth Abscess ED, Dental Pain ED Add. Discharge Instructions: Take full course of antibiotics to treat for dental infection and abscess. Consider taking Probiotics or at least Yogurt with active cultures to help replace good bacteria in your gut that is killed off with the antibiotic treating dental and gum infection. Try to sleep with your head propped up 30-45 degrees for the next few nights. This will help with facial swelling and pain. Follow up with dentist as soon as possible for definitive care of your teeth. Continue with Ibuprofen, Acetaminophen and warm salt water gargles to help with pain and swelling. All discharge instructions reviewed with patient and/or family. Voiced understanding. Scripts Amoxicillin/Potassium Clav (Amox Tr-K Clv 400-57/5 Susp) 400 Mg/5 Ml Susp.recon 10 ML PO BID for Dental Abscess for 10 Days, #200 ML 0 Refills Prov: BRE CASTANEDA MD 08/08/21 Images Mouth/Nose 1 - Caries, Swelling (gum swelling with tenderness), Tenderness BRE CASTANEDA MD Aug 08, 2021 10:19
== END 2021-08-08 10:30 | disposition home or self-care (01) ==
LOC: EDUNIT# 09:45 → ER FS 09:46
DX: K04.7 Periapical abscess without sinus (principal); K02.9 Dental caries, unspecified; F17.210 Nicotine dependence, cigarettes, uncomplicated
CPT/HCPCS: 99284

== ENCOUNTER 2021-08-18 17:10 | Emergency (ER) | payer MEDICAID ==
[~2021-08-18] VITALS: Ht 157.5 cm; Wt 55.8 kg
[~2021-08-18 17:10] MED LIST changes: +AMOX400S8 PO
[2021-08-18 17:22] VITALS: BP 115/84
--- NOTE | 2021-08-18 17:39 | ED EENT ---
History of Present Illness General Chief Complaint: Dental Problems/Pain Stated Complaint: LT EAR PAIN,TOOTH PAIN Nursing Triage Note: Patient reports chronic right upper dental pain/infection, states she has not made it to see a dentist yet. She reports she only took one dose of the antibiotic prescribed to her last week because it made her have chills. She reports her dental pain is worse today and she feels as though her ears are "clogged." Source: patient Exam Limitations: no limitations History of Present Illness Date Seen by Provider: Aug 18, 2021 Time Seen by Provider: 17:20 Initial Comments Here with complaint of right upper dental pain and bilateral ear pain. Reports that she feels pain throughout her sinuses. Also has some chest congestion but just quit smoking. She is a bit anxious. She was seen on 07 August for the same and started on Augmentin but did not tolerate that and has not taken it since. She did get a shot of Rocephin at the time. She is working on getting a dentist. She has been trying ibuprofen elixir without success today. She is unable to swallow pills due to choking incident as a child. Denies fever or chills. Timing/Duration: last week Severity: moderate Location: ear (R), ear (L), mouth, facial, dental Prearrival Treatment: over the counter meds Associated Symptoms: No ear drainage; facial pain/swelling; No fever; sinus infection, tooth pain Allergies and Home Medications Allergies Coded Allergies: ciprofloxacin (Unverified Allergy, Severe, Shortness of Breath, 02/24/19) pt states throat swelling and difficulty breathing when given cipro in an ed in [place], [place] Patient Home Medication List Home Medication List Reviewed: Yes Amoxicillin/Potassium Clav (Amox Tr-K Clv 400-57/5 Susp) 400 Mg/5 Ml Susp.recon, 10 ML PO BID Prescribed by: BRE CASTANEDA on 08/08/21 1018 Review of Systems Review of Systems Constitutional: No chills, No fever Ears: See HPI Nose: congestion; denies pain, denies clear discharge Mouth: pain, swelling Throat: no symptoms reported Respiratory: No cough, No wheezing Cardiovascular: No chest pain, No edema Gastrointestinal: No nausea, No vomiting Skin: No change in color, No lesions Neurological: Anxiety; Denies Headache Past Aximwua-Iphgut-Kxddns Hx Patient Social History Tobacco Use?: Yes Smoking Status: Former Smoker Substance use?: No Alcohol Use?: No Pt feels they are or have been: No Immunizations Up To Date Tetanus Booster (TDap): Unknown Seasonal Allergies Seasonal Allergies: Yes Past Medical History Surgery/Hospitalization HX: Dental Caries Surgeries: No Respiratory: Yes (asthma as child only) Cardiac: No Neurological: No Reproductive Disorders: No Female Reproductive Disorders: Ovarian Cyst Gastrointestinal: No Musculoskeletal: No Endocrine: No Adrenal Disease Cancer: No Psychosocial: Yes (past hx anxiety with post- depression) Anxiety Integumentary: No Blood Disorders: No Family Medical History Reviewed Nursing Family Hx Cancer, Diabetes Physical Exam Vital Signs Vital Signs - First Documented 08/18/21 17:22 Temp 36.6 Pulse 81 Resp 16 B/P (MAP) 115/84 (94) Pulse Ox 99 O2 Delivery Room Air Height, Weight, BMI Height: 5'2.00" Weight: 120lbs. oz. 54.739144de; 22.00 BMI Method:Stated General Appearance: WD/WN, no apparent distress Ears: bilateral ear auricle normal, bilateral ear canal normal, bilateral ear TM bulging, bilateral ear other (Other than slightly bulging TMs, no other abnormality bilateral) Nose: No discharge; sinus tenderness Mouth/Throat: No pharynx swelling, No uvula swelling Neck: full range of motion, supple, normal inspection Cardiovascular: regular rate, rhythm, no murmur Respiratory: lungs clear, normal breath sounds Neurologic/Psychiatric: alert, oriented x 3 Skin: normal color, warm/dry Progress/Results/Core Measures Results/Orders My Orders Orders - MADELEINE MELGAR MD Dexamethasone Injection (Decadron Inje (08/18/21 17:45) Vital Signs/I&O 08/18/21 17:22 Temp 36.6 Pulse 81 Resp 16 B/P (MAP) 115/84 (94) Pulse Ox 99 O2 Delivery Room Air Blood Pressure Mean: 94 Progress Progress Note : Progress Note Seen and evaluated. We did discuss the importance of following up with a dentist. Patient will continue to seek dental care. We will initiate outpatient cefdinir for sinusitis and possible tooth abscess and give Decadron 10 mg IM now. She will continue outpatient ibuprofen and Tylenol elixir as well as initiate Afrin nasal spray. Discharged home with return precautions. Patie nt verbalized understanding of instructions and agreement with plan. Departure Impression Primary Impression: Dental abscess Additional Impression: Sinusitis Qualified Codes: J01.00 - Acute maxillary sinusitis, unspecified Disposition: HOME, SELF-CARE Condition: Stable Departure-Patient Inst. Decision time for Depature: 17:38 Referrals: NO,LOCAL PHYSICIAN (PCP/Family) Primary Care Physician Patient Instructions: Sinusitis, Adult (DC), Tooth Abscess (DC) Add. Discharge Instructions: All discharge instructions reviewed with patient and/or family. Voiced understanding. You may take Tylenol children's elixir 4 teaspoons every 6-8 hours as needed for pain. You may take ibuprofen children's elixir 4 teaspoons every 6-8 hours as needed for pain. Continue to use Anbesol as needed. You may use Afrin nasal spray or the generic, 12-hour relief, 2 sprays to each nostril twice daily for 3 days only and then stop. Do not take more than 3 days. Drink plenty of fluids. It is very important that you follow-up with a dentist as soon as possible. Take other medications as directed. Return for worse pain, fever, vomiting, weakness, breathing problems, swelling in the throat or other concerns as needed. Scripts Cefdinir (Cefdinir) 300 Mg Capsule 300 MG PO BID for 10 Days, #20 CAP 0 Refills Prov: MADELEINE MELGAR MD 08/18/21 MADELEINE MELGAR MD Aug 18, 2021 17:39
[2021-08-18] MEDS ORDERED: CEFD300C3 PO (17:41)
== END 2021-08-18 17:55 | disposition home or self-care (01) ==
LOC: EDUNIT# 17:10 → ER FS 17:11
DX: K04.7 Periapical abscess without sinus (principal); J32.9 Chronic sinusitis, unspecified; Z87.891 Personal history of nicotine dependence
CPT/HCPCS: 99284

== ENCOUNTER 2021-09-29 09:35 | Emergency (ER) | payer MEDICAID ==
[~2021-09-29 09:35] MED LIST changes: +CEFD300C3 PO
--- NOTE | 2021-09-29 10:09 | ED GI ---
General Chief Complaint: Abdominal/GI Problems Stated Complaint: NAUSEA; SOB; ABD PAIN Nursing Triage Note: PT REPORTS SHE STARTED DRINKING BEER YESTERDAY AFTERNOON AND DIDNT STOP DRINKING UNTIL ABOUT 1230AM. THIS AM SHE HAS TREMORS AND NAUSEA WITH SOME DIARRHEA. Source of Information: Patient Exam Limitations: No Limitations History of Present Illness Date Seen by Provider: Sep 29, 2021 Time Seen by Provider: 10:02 Initial Comments 40yoF with no significant PMH coming in saying she feels hungover. Had a bad break-up with a significant other and has been drinking more than usual. Says she has been drinking alcohol around 3 days a week. Started drinking yesterday afternoon and went to bed a little after midnight. Says she feels nauseous, has abdominal cramping with diarrhea, and feels like she is just shaking. She ate a large breakfast and has been drinking fluids and feels slightly better. Has not taken any medications. She says she is starting a new job next week and plans to stop drinking like this. Denies any chest pain, severe abdominal pain, vomiting, weakness, numbness, rash, dysuria, or any other concerns LMP was last week. Allergies and Home Medications Allergies Coded Allergies: ciprofloxacin (Unverified Allergy, Severe, Shortness of Breath, 02/24/19) pt states throat swelling and difficulty breathing when given cipro in an ed in [place]. Patient Home Medication List Home Medication List Reviewed: Yes Amoxicillin/Potassium Clav (Amox Tr-K Clv 400-57/5 Susp) 400 Mg/5 Ml Susp.recon, 10 ML PO BID Prescribed by: BRE CASTANEDA on 08/08/21 1018 Cefdinir (Cefdinir) 300 Mg Capsule, 300 MG PO BID Prescribed by: MADELEINE MELGAR on 08/18/21 1741 Ondansetron (Ondansetron Odt) 4 Mg Tab.rapdis, 4 MG PO Q6H PRN for NAUSEA/VOMITING-1ST LINE Prescribed by: SAMAN MARRERO on 09/29/21 1025 Review of Systems Review of Systems Constitutional: No chills, No fever EENTM: No Blurred Vision Respiratory: Denies Cough Cardiovascular: Denies Chest Pain Gastrointestinal: Diarrhea, Nausea; Denies Vomiting Genitourinary: No Symptoms Reported Musculoskeletal: no symptoms reported Skin: no symptoms reported Psychiatric/Neurological: No Symptoms Reported Endocrine: No Symptoms Reported Hematologic/Lymphatic: No Symptoms Reported All Other Systems Reviewed Negative Unless Noted: Yes Past Iqjxksq-Slowqq-Ileuvd Hx Patient Social History Tobacco Use?: Yes Tobacco type used: Cigarettes Smoking Status: Current Everyday Smoker Use of E-Cig and/or Vaping dev: No Substance use?: No Alcohol Use?: Yes Alcohol type: Beer Alcohol Frequency: Couple times a week Pt feels they are or have been: No Immunizations Up To Date Tetanus Booster (TDap): Unknown Seasonal Allergies Seasonal Allergies: Yes Past Medical History Surgery/Hospitalization HX: Dental Caries Surgeries: No Respiratory: Yes (asthma as child only) Cardiac: No Neurological: No Reproductive Disorders: No Female Reproductive Disorders: Ovarian Cyst Gastrointestinal: No Musculoskeletal: No Endocrine: No Adrenal Disease Cancer: No Psychosocial: Yes (past hx anxiety with post- depression) Anxiety Integumentary: No Blood Disorders: No Family Medical History Cancer, Diabetes Physical Exam Vital Signs Vital Signs - First Documented 09/29/21 09:52 Temp 37.0 Pulse 109 Resp 18 B/P (MAP) 113/93 (100) Pulse Ox 98 O2 Delivery Room Air Capillary Refill : Less Than 3 Seconds Height/Weight/BMI Height: 5'2.00" Weight: 120lbs. oz. 54.896344mg; 22.00 BMI Method:Stated General Appearance: WD/WN, no apparent distress HEENT: PERRL/EOMI, normal ENT inspection, pharynx normal Neck: non-tender, full range of motion, supple, normal inspection Respiratory: chest non-tender, lungs clear, normal breath sounds, no respiratory distress, no accessory muscle use Cardiovascular: regular rate, rhythm, no edema, no murmur Gastrointestinal: normal bowel sounds, non tender, soft; No distended, No guarding, No rebound Extremities: normal range of motion, non-tender, normal inspection, no pedal edema, no calf tenderness, normal capillary refill Back: normal inspection, no CVA tenderness, no vertebral tenderness Neurologic/Psychiatric: no motor/sensory deficits, alert, normal mood/affect Skin: normal color, warm/dry Lymphatic: no adenopathy Progress/Results/Core Measures Results/Orders Lab Results Laboratory Tests Test 09/29/21 09:53 Range/Units My Orders Orders - SAMAN MARRERO MD Ua Culture If Indicated (09/29/21 10:01) Promethazine Injection (Phenergan Injec (09/29/21 10:15) Ketorolac Injection (Toradol Injection) (09/29/21 10:15) Medications Given in ED Current Medications Medications Dose Ordered Sig/Brodie Route Start Time Stop Time Status Last Admin Dose Admin Ketorolac Tromethamine 15 mg ONCE ONCE IM 09/29/21 10:15 09/29/21 10:16 DC 09/29/21 10:10 15 MG Promethazine HCl 25 mg ONCE ONCE IM 09/29/21 10:15 09/29/21 10:16 DC 09/29/21 10:10 25 MG Vital Signs/I&O 09/29/21 09:52 Temp 37.0 Pulse 109 Resp 18 B/P (MAP) 113/93 (100) Pulse Ox 98 O2 Delivery Room Air Blood Pressure Mean: 100 Progress Progress Note : Progress Note 40-year-old female with above history coming in stating she feels hung over. A BCs were intact and vitals were stable on presentation although she is mildly tachycardic. Physical exam reassuring including a soft and nontender abdomen. She does not have any other infectious symptoms, and I favor this is due to alcohol use and less likely infectious in etiology. I did discuss with the patient that if it does not improve after today then she should consider viral testing such as COVID. She was given an IM injection of Phenergan and Toradol and she was given oral rehydration. She is keeping down the fluids without difficulty. She is feeling slightly better. We discussed that she likely just need to go home and sleep and this will get better in time. I believe she is stable for discharge with outpatient follow-up. She was sent home with strict return precautions. Departure Impression Primary Impression: Alcohol use Additional Impression: Nausea Disposition: HOME, SELF-CARE Condition: Stable Departure-Patient Inst. Decision time for Depature: 10:24 Referrals: NO,LOCAL PHYSICIAN (PCP/Family) Primary Care Physician Patient Instructions: Alcohol Use Disorder ED, Nausea and Vomiting, Adult (DC) Add. Discharge Instructions: I sent some nausea medicine to your pharmacy. Drink plenty of fluids today and eat some balanced meals, and just try to get some rest. You should be feeling a lot better by tomorrow. Scripts Ondansetron (Ondansetron Odt) 4 Mg Tab.rapdis 4 MG PO Q6H PRN for NAUSEA/VOMITING-1ST LINE for 5 Days, #20 TAB Prov: SAMAN MARRERO MD 09/29/21 SAMAN MARRERO MD Sep 29, 2021 10:08
[2021-09-29 10:15] VITALS: BP 125/73
[2021-09-29] MEDS ORDERED: KETOROLAC 30 MG/ML VIAL IM ONE (10:15)
[2021-09-29] MEDS ORDERED: PROMETHAZINE INJ 25 MG/ML (PHENERGAN) AMP IM ONE (10:15)
[2021-09-29 10:17] LABS: BILIRUBIN,URINE NEGATIVE (NEGATIVE); CLARITY,URINE SL CLOUDY; COLOR,URINE YELLOW; GLUCOSE, URINE (UA) NEGATIVE (NEGATIVE); KETONES,URINE NEGATIVE (NEGATIVE); LEUKOCYTE ESTERASE ,URINE NEGATIVE (NEGATIVE); NITRITE,URINE NEGATIVE (NEGATIVE); PH,URINE 8.5 (5-9); PROTEIN,URINE 1+ (NEGATIVE)
[2021-09-29] MEDS ORDERED: ONDA4TAB11 PO (10:25)
[2021-09-29 10:27] LABS: BACTERIA,URINE TRACE /HPF; RBC,URINE RARE /HPF; WBC,URINE 0-2 /HPF
== END 2021-09-29 10:30 | disposition home or self-care (01) ==
LOC: EDUNIT# 09:35 → ER FS 09:37
DX: Z72.89 Other problems related to lifestyle (principal); F17.210 Nicotine dependence, cigarettes, uncomplicated
CPT/HCPCS: 81000; 99282

== ENCOUNTER 2022-02-05 10:19 | Emergency (ER) | payer MEDICAID ==
[~2022-02-05] VITALS: Ht 157.4 cm; Wt 59.0 kg
[~2022-02-05 10:19] MED LIST changes: +ONDA4TAB11 PO
--- NOTE | 2022-02-05 10:29 | ED Respiratory ---
General Chief Complaint: COVID19 Suspect/Confirmed Stated Complaint: DIARRHEA; NAUSEA; GEN ACHING History of Present Illness Date Seen by Provider: Feb 05, 2022 Time Seen by Provider: 10:29 Initial Comments 41-year-old female is here with complaints of body aches, not feeling well, nausea, sore throat, diarrhea, fever with chills, lethargy, since 3 days ago. Patient has only been eating soup and popsicles. She has loss of appetite. Patient also states that she had an STD screen at her PCP office and was positive for trichomonas. She was given an antibiotic for it but she has not taken it and still has symptoms for the past 3 to 4 weeks. Patient states that she has a phobia of taking medication/pills. She does not like to swallow pills and she has a fear of having allergic reaction to pills. Denies chest pain, shortness of breath, dysuria, hematuria. No known sick contacts. Allergies and Home Medications Allergies Coded Allergies: ciprofloxacin (Unverified Allergy, Severe, Shortness of Breath, 02/24/19) pt states throat swelling and difficulty breathing when given cipro in [place] amoxicillin (Verified Adverse Reaction, Unknown, Rash, 02/05/22) Patient Home Medication List Home Medication List Reviewed: Yes Amoxicillin/Potassium Clav (Amox Tr-K Clv 400-57/5 Susp) 400 Mg/5 Ml Susp.recon, 10 ML PO BID Prescribed by: BRE CASTANEDA on 08/08/21 1018 Cefdinir (Cefdinir) 300 Mg Capsule, 300 MG PO BID Prescribed by: MADELEINE MELGAR on 08/18/21 1741 Ondansetron (Ondansetron Odt) 4 Mg Tab.rapdis, 4 MG PO Q6H PRN for NAUSEA/VOMITING-1ST LINE Prescribed by: SAMAN MARRERO on 09/29/21 1025 Review of Systems Review of Systems Constitutional: chills, fever, malaise EENTM: throat pain Respiratory: no symptoms reported Cardiovascular: no symptoms reported Gastrointestinal: diarrhea, loss of appetite, nausea, vomiting Genitourinary: no symptoms reported Musculoskeletal: no symptoms reported Skin: no symptoms reported Psychiatric/Neurological: No Symptoms Reported Hematologic/Lymphatic: No Symptoms Reported Immunological/Allergic: no symptoms reported Past Hniwjey-Nqghxa-Sqccno Hx Immunizations Up To Date Tetanus Booster (TDap): Unknown Seasonal Allergies Seasonal Allergies: Yes Past Medical History Surgery/Hospitalization HX: Dental Caries Surgeries: No Respiratory: Yes (asthma as child only) Cardiac: No Neurological: No Reproductive Disorders: No Female Reproductive Disorders: Ovarian Cyst Gastrointestinal: No Musculoskeletal: No Endocrine: No Adrenal Disease Cancer: No Psychosocial: Yes (past hx anxiety with post- depression) Anxiety Integumentary: No Blood Disorders: No Family Medical History Cancer, Diabetes Physical Exam Vital Signs - First Documented 02/05/22 10:38 Temp 36.6 Pulse 89 Resp 16 B/P (MAP) 105/66 (79) Pulse Ox 99 O2 Delivery Room Air Capillary Refill : Height: 5'2.00" Weight: 120lbs. oz. 54.946976lz; 22.00 BMI Method:Stated General Appearance: WD/WN, no apparent distress HEENT: PERRL/EOMI, pharyngeal erythema Neck: non-tender, full range of motion, supple Respiratory: chest non-tender, lungs clear, normal breath sounds, no respiratory distress Cardiovascular: normal peripheral pulses, regular rate, rhythm, no edema Gastrointestinal: normal bowel sounds, non tender, soft, no organomegaly Extremities: normal range of motion Neurologic/Psychiatric: no motor/sensory deficits, alert, normal mood/affect Skin: normal color Lymphatic: no adenopathy Progress/Results/Core Measures Suspected Sepsis SIRS Temperature: Pulse: Respiratory Rate: Laboratory Tests 02/05/22 10:51: White Blood Count 7.4 Blood Pressure / Mean: Laboratory Tests 02/05/22 10:51: Creatinine 0.95, Platelet Count 222, Total Bilirubin 0.3 Results/Orders Lab Results Laboratory Tests Test 02/05/22 10:34 02/05/22 10:46 02/05/22 10:51 02/05/22 10:57 Range/Units Influenza Type A (RT-PCR) Not Detected Not Detecte Influenza Type B (RT-PCR) Not Detected Not Detecte SARS-CoV-2 RNA (RT-PCR) Not Detected Not Detecte Urine Color YELLOW Urine Clarity CLEAR Urine pH 5.5 5-9 Urine Specific [place] >=1.030 1.016-1.022 Urine Protein NEGATIVE NEGATIVE Urine Glucose (UA) NEGATIVE NEGATIVE Urine Ketones TRACE H NEGATIVE Urine Nitrite NEGATIVE NEGATIVE Urine Bilirubin NEGATIVE NEGATIVE Urine Urobilinogen 0.2 < = 1.0 MG/DL Urine Leukocyte Esterase TRACE H NEGATIVE Urine RBC (Auto) 2+ H NEGATIVE Urine RBC NONE /HPF Urine WBC 5-10 H /HPF Urine Crystals NONE /LPF Urine Bacteria FEW H /HPF Urine Casts PRESENT /LPF Urine Hyaline Casts 2-5 H /LPF Urine Mucus LARGE H /LPF Urine Culture Indicated YES Urine Opiates Screen NEGATIVE NEGATIVE Urine Oxycodone Screen NEGATIVE NEGATIVE Urine Methadone Screen NEGATIVE NEGATIVE Urine Propoxyphene Screen NEGATIVE NEGATIVE Urine Barbiturates Screen NEGATIVE NEGATIVE Ur Tricyclic Antidepressants Screen NEGATIVE NEGATIVE Urine Phencyclidine Screen NEGATIVE NEGATIVE Urine Amphetamines Screen NEGATIVE NEGATIVE Urine Methamphetamines Screen NEGATIVE NEGATIVE Urine Benzodiazepines Screen NEGATIVE NEGATIVE Urine Cocaine Screen NEGATIVE NEGATIVE Urine Cannabinoids Screen NEGATIVE NEGATIVE White Blood Count 7.4 4.3-11.0 10^3/uL Red Blood Count 5.01 3.80-5.11 10^6/uL Hemoglobin 15.0 11.5-16.0 g/dL Hematocrit 44 35-52 % Mean Corpuscular Volume 88 80-99 fL Mean Corpuscular Hemoglobin 30 25-34 pg Mean Corpuscular Hemoglobin Concent 34 32-36 g/dL Red Cell Distribution Width 12.1 10.0-14.5 % Platelet Count 222 130-400 10^3/uL Mean Platelet Volume 9.7 9.0-12.2 fL Immature Granulocyte % (Auto) 0 % Neutrophils (%) (Auto) 72 42-75 % Lymphocytes (%) (Auto) 14 12-44 % Monocytes (%) (Auto) 9 0-12 % Eosinophils (%) (Auto) 4 0-10 % Basophils (%) (Auto) 1 0-10 % Neutrophils # (Auto) 5.3 1.8-7.8 10^3/uL Lymphocytes # (Auto) 1.1 1.0-4.0 10^3/uL Monocytes # (Auto) 0.7 0.0-1.0 10^3/uL Eosinophils # (Auto) 0.3 0.0-0.3 10^3/uL Basophils # (Auto) 0.1 0.0-0.1 10^3/uL Immature Granulocyte # (Auto) 0.0 0.0-0.1 10^3/uL Sodium Level 134 L 135-145 MMOL/L Potassium Level 3.6 3.6-5.0 MMOL/L Chloride Level 101 98-107 MMOL/L Carbon Dioxide Level 25 21-32 MMOL/L Anion Gap 8 5-14 MMOL/L Blood Urea Nitrogen 8 7-18 MG/DL Creatinine 0.95 0.60-1.30 MG/DL Estimat Glomerular Filtration Rate 77 BUN/Creatinine Ratio 8 Glucose Level 91 70-105 MG/DL Calcium Level 8.8 8.5-10.1 MG/DL Corrected Calcium 8.5-10.1 MG/DL Total Bilirubin 0.3 0.1-1.0 MG/DL Aspartate Amino Transf (AST/SGOT) 20 5-34 U/L Alanine Aminotransferase (ALT/SGPT) 15 0-55 U/L Alkaline Phosphatase 68 40-136 U/L Total Protein 8.1 6.4-8.2 GM/DL Albumin 4.7 H 3.2-4.5 GM/DL Serum Test, Qualitative NEGATIVE NEGATIVE Group A Streptococcus Screen NEGATIVE NEGATIVE My Orders Orders - JAVI BANSAL MD Covid 19 Inhouse Test (02/05/22 10:34) Influenza A And B By Pcr (02/05/22 10:34) Rapid Strep A Screen (02/05/22 10:44) Cbc With Automated Diff (02/05/22 10:46) Comprehensive Metabolic Panel (02/05/22 10:46) Drug Screen Stat (Urine) (02/05/22 10:46) Hcg,Qualitative Serum (02/05/22 10:46) Ua Culture If Indicated (02/05/22 10:46) Ondansetron Injection (Zofran Injectio (02/05/22 11:00) Ns Iv 1000 Ml (Sodium Chloride 0.9%) (02/05/22 10:47) Famotidine Injection (Pepcid Injection) (02/05/22 10:47) Ed Iv/Invasive Line Start (02/05/22 10:47) Ketorolac Injection (Toradol Injection) (02/05/22 11:00) Urine Culture (02/05/22 10:46) Medications Given in ED Current Medications Medications Dose Ordered Sig/Brodie Route Start Time Stop Time Status Last Admin Dose Admin Ketorolac Tromethamine 15 mg ONCE ONCE IVP 02/05/22 11:00 02/05/22 11:01 DC 02/05/22 10:58 15 MG Ondansetron HCl 4 mg ONCE ONCE IVP 7/23/22 11:00 02/05/22 11:01 DC 02/05/22 10:58 4 MG Vital Signs/I&O 02/05/22 10:38 Temp 36.6 Pulse 89 Resp 16 B/P (MAP) 105/66 (79) Pulse Ox 99 O2 Delivery Room Air Capillary Refill : Progress Note : Progress Note 1. VIRAL GASTROENTERITIS WITH DEHYDRATION: - COVID TEST negative - Rapid Flu Test/ Rapid STrep Test: negative - CBC/ CMP: unremarkable - NS IVF bolus/ Zofran 4mg iv/ Pepcid 20mg iv / Toradol 15mg iv -Follow-up with PCP in 3 to 7 days the patient was seen in the ED, and treated appropriately to presentation at a specific point in time. Patient is informed that there is a possibility that disease and illness can evolve and change in acuity rapidly or slowly after patient is discharged from the ER. - Precautionary advice given to the patient for immediate return to ER if symptoms worsen or do not resolve, and to seek emergency care sooner rather than later. Pt also advised on the importance of PCP follow up and compliance with management and follow up plan with PCP and/or specialist, as this is part of the management plan. Pt verbally expressed understanding. 2. ACUTE CYSTITIS WITH HEMATURIA: - UA / UDS: positive leukocyte esterase, RBC, bacteria, ketones - Prescription for Bactrim BID for 5 days -Adequate hydration advised Departure Impression Primary Impression: Viral gastroenteritis Additional Impressions: Acute cystitis with hematuria Dehydration Disposition: HOME, SELF-CARE Condition: Improved Departure-Patient Inst. Referrals: NO,LOCAL PHYSICIAN (PCP/Family) Primary Care Physician Patient Instructions: Acute Cystitis (DC), Dehydration, Adult ED, Why Water Is Important to Health, Viral Gastroenteritis Add. Discharge Instructions: - Prescription for Bactrim BID for 5 days -Adequate hydration advised - Follow up with PCP in 3 to 7 days - Return to ER if symptoms worsening All discharge instructions reviewed with patient and/or family. Voiced understanding. JAVI BANSAL MD Feb 05, 2022 10:29
[2022-02-05] MEDS ORDERED: NS IV 1000 ML 1,000 ML IV STA (10:47)
[2022-02-05] MEDS ORDERED: FAMOTIDINE 20MG/2ML IV (PEPCID) IV STA (10:47)
[2022-02-05 10:58] LABS: BASOPHILS # (AUTO) 0.1 10^3/uL (0.0-0.1); BASOPHILS % (AUTO) 1 % (0-10); EOSINOPHILS # (AUTO) 0.3 10^3/uL (0.0-0.3); EOSINOPHILS % (AUTO) 4 % (0-10); HEMATOCRIT 44 % (35-52); LYMPHOCYTES # (AUTO) 1.1 10^3/uL (1.0-4.0); LYMPHOCYTES % (AUTO) 14 % (12-44); MEAN CORPUSCULAR HEMOGLOBIN 30 pg (25-34); MEAN CORPUSCULAR HGB CONC 34 g/dL (32-36); MEAN CORPUSCULAR VOLUME 88 fL (80-99); MEAN PLATELET VOLUME 9.7 fL (9.0-12.2); MONOCYTES # (AUTO) 0.7 10^3/uL (0.0-1.0); MONOCYTES % (AUTO) 9 % (0-12); NEUTROPHILS # (AUTO) 5.3 10^3/uL (1.8-7.8); NEUTROPHILS % (AUTO) 72 % (42-75); PLATELET COUNT 222 10^3/uL (130-400); WHITE BLOOD COUNT 7.4 10^3/uL (4.3-11.0)
[2022-02-05 11:00] LABS: BILIRUBIN,URINE NEGATIVE (NEGATIVE); CLARITY,URINE CLEAR; COLOR,URINE YELLOW; GLUCOSE, URINE (UA) NEGATIVE (NEGATIVE); KETONES,URINE TRACE (NEGATIVE); LEUKOCYTE ESTERASE ,URINE TRACE (NEGATIVE); NITRITE,URINE NEGATIVE (NEGATIVE); PH,URINE 5.5 (5-9); PROTEIN,URINE NEGATIVE (NEGATIVE)
[2022-02-05] MEDS ORDERED: ONDANSETRON 4 MG/2 ML (SDV) Z0FRAN IVP ONE (11:00)
[2022-02-05] MEDS ORDERED: KETOROLAC 30 MG/ML VIAL IVP ONE (11:00)
[2022-02-05 11:04] LABS: BACTERIA,URINE FEW /HPF
[2022-02-05 11:09] LABS: AMPHETAMINE SCREEN, URINE NEGATIVE (NEGATIVE); BARBITURATE SCREEN URINE NEGATIVE (NEGATIVE); BENZODIAZEPINES SCREEN URINE NEGATIVE (NEGATIVE); CANNABINOID SCREEN, URINE NEGATIVE (NEGATIVE); COCAINE SCREEN URINE NEGATIVE (NEGATIVE); METHADONE STAT NEGATIVE (NEGATIVE); OPIATE SCREEN URINE NEGATIVE (NEGATIVE); OXYCODONE STAT NEGATIVE (NEGATIVE); PROPOXYPHENE STAT NEGATIVE (NEGATIVE); TRICYCLIC ANTIDEPRESSANTS SCRE NEGATIVE (NEGATIVE)
[2022-02-05 11:21] LABS: ALANINE AMINOTRANSFERASE 15 U/L (0-55); ALBUMIN 4.7 GM/DL (3.2-4.5); ALKALINE PHOSPHATASE 68 U/L (40-136); BILIRUBIN,TOTAL 0.3 MG/DL (0.1-1.0); BUN/CREATININE RATIO 8; CALCIUM 8.8 MG/DL (8.5-10.1); CARBON DIOXIDE 25 MMOL/L (21-32); CHLORIDE 101 MMOL/L (98-107); CREATININE SERUM 0.95 MG/DL (0.60-1.30); GFR ESTIMATED 77; GLUCOSE 91 MG/DL (70-105); POTASSIUM 3.6 MMOL/L (3.6-5.0); SODIUM 134 MMOL/L (135-145); TOTAL PROTEIN 8.1 GM/DL (6.4-8.2)
[2022-02-05] MEDS ORDERED: SULF1TAB38 PO (11:45)
[2022-02-05 11:48] VITALS: BP 105/62
== END 2022-02-05 11:47 | disposition home or self-care (01) ==
LOC: EDUNIT# 10:19 → ER FS 10:20
DX: A08.4 Viral intestinal infection, unspecified (principal); N30.01 Acute cystitis with hematuria; E86.0 Dehydration; Z20.822 Contact with and (suspected) exposure to COVID-19; Z28.310 Unvaccinated for COVID-19
CPT/HCPCS: 36415; 80053; 80306; 81000; 84703; 85025; 87088; 87430; 87636

== ENCOUNTER 2022-09-01 11:21 | Emergency (ER) | payer MEDICAID ==
[~2022-09-01] VITALS: Ht 157 cm; Wt 60.0 kg
[~2022-09-01 11:21] MED LIST changes: +ALBU8.5H6 IH; -RT-ALBUINH IH
[2022-09-01 12:21] LABS: BILIRUBIN,URINE NEGATIVE (NEGATIVE); CLARITY,URINE CLEAR; COLOR,URINE YELLOW; GLUCOSE, URINE (UA) NEGATIVE (NEGATIVE); KETONES,URINE NEGATIVE (NEGATIVE); LEUKOCYTE ESTERASE ,URINE TRACE (NEGATIVE); NITRITE,URINE NEGATIVE (NEGATIVE); PROTEIN,URINE NEGATIVE (NEGATIVE)
--- NOTE | 2022-09-01 12:22 | ED General ---
General Chief Complaint: Respiratory Problems Stated Complaint: SOB | BACK PAIN | HEADACHE | DIZZY Nursing Triage Note: NOT FELT WELL FOR A COUPLE OF WEEKS. COMPLAINS OF SOA AND UPPER RIGHT BACK PAIN. Source of Information: Patient Exam Limitations: No Limitations History of Present Illness Date Seen by Provider: Sep 01, 2022 Time Seen by Provider: 12:18 Initial Comments Patient is a 41-year-old female with a history of smoking who presents ED with multiple complaints. She states she has had mid sharp back pain over the past 2 weeks. Denies of any injury but has been moving boxes for a recent move. Pain feels deep and not worse with movement. She does report some chest tightness, shortness of breath over the past 2 days. Chest tightness occurs with deep inspiration and cough. She does report a cough with sputum production over the past 2 days. Does smoke daily. No known cardiac history, history of asthma or COPD. She states she has been around people with strep throat but denies of any sore throat. Has been feeling tired, fatigue, low energy levels over the past week. She does report increased urinary urgency without pain, vaginal discharge for two weeks. She is currently on her menstrual cycle that started yesterday without heavier bleeding. She states today the reason why she came to the ER because she felt lightheaded and dizzy with posterior "fuzzy" head pain this morning that lasted for a short duration. denies syncope. These symptoms have improved. No current chest pain but does report some back pain and urine symptoms currently. She is requesting a urinalysis. She is trying to schedule up with her primary care physician. No known cardiac history or history of syncope. No family history of sudden cardiac . She denies of any wheezing or worsening shortness of breath. Not concern for cardiac etiology and refuses any cardiac work-up or chest x-ray. Denies of any abdominal pain, vomiting, diarrhea, fever, current visual changes, drug use, weight changes, loss of hair, history of cancer, distal numbness and tingling. She states she is scheduled follow-up with optometry in November to get her glasses checked. She reports some blurry vision for several months and believes this is related to her eyesight. Allergies and Home Medications Allergies Coded Allergies: ciprofloxacin (Unverified Allergy, Severe, Shortness of Breath, 02/24/19) pt states throat swelling and difficulty breathing when given [place] in [place] amoxicillin (Verified Adverse Reaction, Unknown, Rash, 02/05/22) Patient Home Medication List Home Medication List Reviewed: Yes Discontinued Medications Amoxicillin/Potassium Clav (Amox Tr-K Clv 400-57/5 Susp) 400 Mg/5 Ml Susp.recon, 10 ML PO BID Discontinued Reason: No Longer Taking Prescribed by: BRE CASTANEDA on 08/08/21 1018 Last Action: Discontinued Cefdinir (Cefdinir) 300 Mg Capsule, 300 MG PO BID Discontinued Reason: No Longer Taking Prescribed by: MADELEINE MELGAR on 08/18/21 1741 Last Action: Discontinued Ondansetron (Ondansetron Odt) 4 Mg Tab.rapdis, 4 MG PO Q6H PRN for NAUSEA/VOMITING-1ST LINE Discontinued Reason: No Longer Taking Prescribed by: SAMAN MARRERO on 09/29/21 1025 Last Action: Discontinued Sulfamethoxazole/Trimethoprim (Bactrim Ds Tablet) 1 Each Tablet, 1 EACH PO BID Discontinued Reason: No Longer Taking Prescribed by: JAVI BANSAL MD on 02/05/22 1145 Last Action: Discontinued Review of Systems Review of Systems Constitutional: chills; No diaphoresis; dizziness, malaise, weakness EENTM: No hearing loss, No ear pain, No blurred vision, No vision loss, No mouth pain, No mouth swelling, No nose congestion, No nose pain, No throat pain, No throat swelling Respiratory: cough, short of breath Cardiovascular: chest pain; No syncope, No vascular heart diseas Gastrointestinal: No abdominal pain, No diarrhea, No nausea, No vomiting Genitourinary: No decreased output; other (urgency) Musculoskeletal: back pain; No joint pain Psychiatric/Neurological: Anxiety All Other Systems Reviewed Negative Unless Noted: Yes Past Rpesafg-Ayubnj-Mwzont Hx Patient Social History Tobacco Use?: Yes Tobacco type used: Cigarettes Substance use?: No Alcohol Use?: Yes Alcohol Frequency: Couple times a week Immunizations Up To Date Tetanus Booster (TDap): Unknown First/Initial COVID19 Vaccinat: Not currently vaccinated Seasonal Allergies Seasonal Allergies: Yes Past Medical History Surgery/Hospitalization HX: Dental Caries Surgeries: No Respiratory: Yes (asthma as child only) Cardiac: No Neurological: No Last Menstrual Period: Sep 01, 2022 Reproductive Disorders: No Female Reproductive Disorders: Ovarian Cyst Gastrointestinal: No Musculoskeletal: No Endocrine: No Adrenal Disease Cancer: No Psychosocial: Yes (past hx anxiety with post- depression) Anxiety Integumentary: No Blood Disorders: No Family Medical History Cancer, Diabetes Physical Exam Vital Signs Vital Signs - First Documented 09/01/22 11:32 Temp 36.8 Pulse 87 Resp 16 B/P (MAP) 120/81 (94) Pulse Ox 99 O2 Delivery Room Air Capillary Refill : Less Than 3 Seconds Height, Weight, BMI Height: 5'2.00" Weight: 120lbs. oz. 54.836982ap; 24.00 BMI Method:Stated General Appearance: No Apparent Distress, WD/WN Eyes: Bilateral Eye Normal Inspection, Bilateral Eye PERRL, Bilateral Eye EOMI HEENT: PERRL/EOMI, TMs Normal, Normal ENT Inspection, Pharynx Normal Neck: Full Range of Motion, Normal Inspection, Non Tender, Supple Respiratory: Chest Non Tender, Lungs Clear, Normal Breath Sounds, No Accessory Muscle Use, No Respiratory Distress Cardiovascular: Regular Rate, Rhythm, No Edema, No Gallop, No JVD, No Murmur Gastrointestinal: Normal Bowel Sounds, No Organomegaly, No Pulsatile Mass, Non Tender, Soft Back: Other (No cervical, thoracic or lumbar midline tenderness. Mild bilateral thoracic paraspinal muscle tenderness without swelling, or bruising.) Extremity: Normal Capillary Refill, Normal Inspection, Normal Range of Motion, Non Tender Neurologic/Psychiatric: Alert, Oriented x3, No Motor/Sensory Deficits, Normal Mood/Affect, area counselor II-XII Norm as Tested Skin: Normal Color, Warm/Dry Progress/Results/Core Measures Suspected Sepsis SIRS Temperature: Pulse: 87 Respiratory Rate: 16 Blood Pressure 120 /81 Mean: 94 Results/Orders Lab Results Laboratory Tests Test 09/01/22 12:13 Range/Units Urine Color YELLOW Urine Clarity CLEAR Urine pH 6.0 5-9 Urine Specific [place] <=1.005 1.016-1.022 Urine Protein NEGATIVE NEGATIVE Urine Glucose (UA) NEGATIVE NEGATIVE Urine Ketones NEGATIVE NEGATIVE Urine Nitrite NEGATIVE NEGATIVE Urine Bilirubin NEGATIVE NEGATIVE Urine Urobilinogen 0.2 < = 1.0 MG/DL Urine Leukocyte Esterase TRACE H NEGATIVE Urine RBC (Auto) 3+ H NEGATIVE Urine RBC 10-25 H /HPF Urine WBC 2-5 /HPF Urine Squamous Epithelial Cells 2-5 /HPF Urine Renal Epithelial Cells NONE /HPF Urine Crystals NONE /LPF Urine Bacteria NEGATIVE /HPF Urine Casts NONE /LPF Urine Mucus NEGATIVE /LPF Urine Other RARE TRANS EPI /HPF Urine Culture Indicated NO Urine Test NEGATIVE NEGATIVE My Orders Orders - SAMAN CHAPA Ua Culture If Indicated (09/01/22 12:09) Hcg,Qualitative Urine (09/01/22 12:09) Vital Signs/I&O 09/01/22 09/01/22 09/01/22 11:32 11:45 13:00 Temp 36.8 Pulse 87 75 Resp 16 16 B/P (MAP) 120/81 (94) 123/72 Pulse Ox 99 99 O2 Delivery Room Air Room Air Room Air Capillary Refill : Less Than 3 Seconds Blood Pressure Mean: 94 Departure Communication (PCP) Patient complaining of mid back pain sharp without worsening pain with movement. She does have some mild tenderness bilateral thoracic without any thoracic or lumbar midline tenderness. No fever, bowel or urine incontinence, saddle paresthesia, lower extremity weakness suggesting discitis, epidural abscess, bulging disc. Denies of any drug use or trauma. She reports lifting boxes over the past few weeks as she recently moved to the [facility]. This could be more musculoskeletal secondary to lifting objects. She was concerned today as she felt dizzy, lightheaded while getting ready. She denied having chest pain or shortness of breath immediately before or after. She did develop "fuzziness posterior head pain" but that has resolved. she has been having some coughing with sputum production over the past 2 days everyday smoker. No history of COPD or asthma. Denies of any specific wheezing, current chest pain, abdominal, pain, vomiting or diarrhea. She states she feels tired fatigue with low energy levels. Discussed lab work (cbc, cmp, lipase), EKG for arrhythmia, chest x-ray rule out pulmonary or cardiac etiology , covid/influenza for viral syndrome and urinalysis as she reports frequent urination over the past 2 weeks. She is currently on her menstrual cycle that started yesterday. Not concern for . She agreed with urinalysis only. Urinalysis positive for hematuria without evidence of infection. No radiating pain to the abdomen. Denies history of kidney stones. Recommend recheck of her urinalysis in 5 to 6 days. If continued pain with hematuria may consider other potential etiologies such as kidney stones. Her lungs sound were clear bilateral without wheezing, rhonchi. Equal pulses bilateral. Patient does not feel that this is cardiac related and would rather wait on ekg, lab work, chest xray. Not able to rule out atypical angina, cardiac etiology, pneumonia. She acknowledges. Patient PECARN is 0. Wells criteria 0. Denies of any leg pain, swelling or bruising. No recent travels, surgeries, previous history of PE or DVT.. No history of cancer. No known family cardiac history but she is adopted. Low risk for PE or DVT. patient states she feels much better and would like to be discharged. Refused swab to rule out COVID influenza. Did discuss chest x-ray and lab work she would rather wait. If any worsening symptoms she will return back to the ED. Impression Primary Impression: Cough Additional Impression: Back pain Disposition: 01 HOME, SELF-CARE Condition: Stable Departure-Patient Inst. Decision time for Depature: 12:53 Referrals: [facility] NO,LOCAL PHYSICIAN (PCP) Primary Care Physician Patient Instructions: Upper Back Pain (DC) Add. Discharge Instructions: Recommend follow-up your primary care physician for further evaluation. Recommend anti-inflammatories and stretching of the back. If any worsening chest pain, shortness of breath, syncope strongly recommend returning back to ED. All discharge instructions reviewed with patient and/or family. Voiced understa nding. SAMAN CHAPA Sep 01, 2022 12:22
[2022-09-01 12:33] LABS: BACTERIA,URINE NEGATIVE /HPF
[2022-09-01 12:41] LABS: URINE OTHER RARE TRANS EPI /HPF
[2022-09-01 13:00] VITALS: BP 123/72
== END 2022-09-01 13:00 | disposition home or self-care (01) ==
LOC: EDUNIT# 11:21 → ER 11:24
DX: R05.9 Cough, unspecified (principal); M54.6 Pain in thoracic spine; R09.3 Abnormal sputum; R31.9 Hematuria, unspecified; R53.83 Other fatigue; F17.210 Nicotine dependence, cigarettes, uncomplicated; Z28.310 Unvaccinated for COVID-19
CPT/HCPCS: 81000; 84703; 99282

== ENCOUNTER 2022-10-29 08:44 | Emergency (ER) | payer MEDICAID ==
[~2022-10-29] VITALS: Ht 157 cm; Wt 63.5 kg
--- NOTE | 2022-10-29 09:27 | ED Cough/URI ---
General Chief Complaint: Cough/Cold/Flu Symptoms Stated Complaint: SOA - SORE THROAT - COUGH Nursing Triage Note: pt presents to ed via pov from home with complaints of sore throat x 1 week, productive cough x 3 days, pt reports soa this am when she woke up. Source: patient Exam Limitations: no limitations History of Present Illness Date Seen by Provider: Oct 29, 2022 Time Seen by Provider: 09:20 Initial Comments Patient is a 41-year-old female who presents to the emergency room with a chief complaint of congestion, sore throat x1 week, productive cough over the last 2 to 3 days. She felt a little short of breath this morning and was concerned she might have pneumonia. She is a smoker but has not smoked in the last 2 days. Has not been taking any medications for her symptoms due to being a single parent and limited financial resources. She did take some Tylenol yesterday. No abdominal pain, nausea, vomiting or diarrhea. No urinary complaints. Is not COVID vaccinated. Unknown sick contacts. Timing/Duration: week Severity/Quality: productive cough Associated Symptoms: cough, fever/chills (Subjective), nasal congestion, shortness of breath, sore throat Allergies and Home Medications Allergies Coded Allergies: ciprofloxacin (Unverified Allergy, Severe, Shortness of Breath, 02/24/19) pt states throat swelling and difficulty breathing when given cipro in an ed in [place] amoxicillin (Verified Adverse Reaction, Unknown, Rash, 02/05/22) Patient Home Medication List Home Medication List Reviewed: Yes Review of Systems Review of Systems Constitutional: see HPI EENTM: nose congestion, throat pain Respiratory: cough, phlegm, short of breath Cardiovascular: no symptoms reported Gastrointestinal: no symptoms reported Genitourinary: no symptoms reported Musculoskeletal: no symptoms reported Skin: no symptoms reported Psychiatric/Neurological: No Symptoms Reported All Other Systems Reviewed Negative Unless Noted: Yes Past Humrtgt-Xybeig-Excjfj Hx Patient Social History Tobacco Use?: No Smoking Status: Current Everyday Smoker Use of E-Cig and/or Vaping dev: No Substance use?: No Alcohol Use?: Yes Alcohol Frequency: Couple times a week Pt feels they are or have been: No Immunizations Up To Date Tetanus Booster (TDap): Unknown First/Initial COVID19 Vaccinat: Not currently vaccinated Second COVID19 Vaccination Adriel: Not currently vaccinated Third COVID19 Vaccination Date: Not currently vaccinated Seasonal Allergies Seasonal Allergies: Yes Past Medical History Surgery/Hospitalization HX: Dental Caries, psych-anxiety and fear of taking medication after having a reaction to an antidepressant. Surgeries: No Respiratory: Yes (asthma as child only) Cardiac: No Neurological: No Reproductive Disorders: No Female Reproductive Disorders: Ovarian Cyst Gastrointestinal: No Musculoskeletal: No Endocrine: No Adrenal Disease Cancer: No Psychosocial: Yes (past hx anxiety with post- depression) Anxiety Integumentary: No Blood Disorders: No Family Medical History Cancer, Diabetes Physical Exam Vital Signs - First Documented 10/29/22 10/29/22 08:57 09:30 Temp 36.4 Pulse 92 Resp 18 B/P (MAP) 123/96 (105) Pulse Ox 98 O2 Delivery Room Air Capillary Refill : Less Than 3 Seconds Height: 5'2.00" Weight: 120lbs. oz. 54.556013ri; 25.00 BMI Method:Stated General Appearance: WD/WN, no apparent distress Eyes: Bilateral Eye Normal Inspection, Bilateral Eye PERRL, Bilateral Eye EOMI HEENT: PERRL/EOMI, normal ENT inspection, TMs normal, pharynx normal Neck: full range of motion, lymphadenopathy (R), lymphadenopathy (L) (Upper anterior cervical lymphadenopathy bilaterally) Respiratory: lungs clear, normal breath sounds, no respiratory distress, no accessory muscle use Cardiovascular: regular rate, rhythm Gastrointestinal: non tender, soft Extremities: normal range of motion, normal inspection Neurologic/Psychiatric: alert, normal mood/affect, oriented x 3 Skin: normal color, warm/dry Progress/Results/Core Measures Suspected Sepsis SIRS Temperature: Pulse: 92 Respiratory Rate: 18 Blood Pressure 123 /96 Mean: 105 Results/Orders Lab Results Laboratory Tests Test 10/29/22 09:32 Range/Units SARS-CoV-2 RNA (RT-PCR) Not Detected Not Detecte My Orders Orders - INDRA JO MD Chest 1 View, Ap/Pa Only (10/29/22 09:26) Covid 19 Inhouse Test (10/29/22 09:26) Isolation Central Supply Req (10/29/22 09:26) Urine Bedside (10/29/22 09:38) Guaifenesin/Dm Syrup (Robitussin Dm Syru (10/29/22 10:11) Vital Signs/I&O 10/29/22 10/29/22 10/29/22 08:57 09:30 10:26 Temp 36.4 Pulse 92 90 Resp 18 16 B/P (MAP) 123/96 (105) 120/94 Pulse Ox 98 99 O2 Delivery Room Air Capillary Refill : Less Than 3 Seconds Blood Pressure Mean: 105 Progress Note : Time: 10:27 Progress Note Patient seen and evaluated by me. Evaluation today includes physical exam, flu and COVID swab, single view chest x-ray. Pertinent physical exam findings include well-developed well-nourished 41-year-old female, no acute distress. Nasal mucosal congestion, normal oropharynx without tonsillar enlargement or exudate. Mucous membranes are moist. TMs are clear bilaterally. She does have mild anterior cervical lymphadenopathy. Lungs are clear without wheeze or rhonchi. Room air sats 97%. Abdomen is soft. No rashes. Differential diagnosis based on history and physical exam, viral syndrome, bronchitis, pneumonia. Chest x-ray independently interpreted by me, no focal infiltrate or effusion. COVID and flu swabs are negative. Likely viral upper respiratory illness. No concerning findings for pneumonia. Discussed with patient eaoh-srf-txwapbv medication such as Robitussin or DayQuil/NyQuil for congestion. Recommended increased fluids and fever reducers. Smoking cessation encouraged. Return precautions provided. All questions are sought and answered. Diagnostic Imaging Diagonstic Imaging: Xray Plain Films/CT/US/NM/MRI: chest Comments [facility] [place] NAME: ARABELLAOctober [facility] REC#: [id number] PT STATUS: REG ER : 1980 PHYSICIAN: INDRA JO MD ADMIT DATE: 10/29/22/ER Signed Date of Exam:10/29/22 CHEST 1 VIEW, AP/PA ONLY CHEST 1 VIEW, AP/PA ONLY INDICATION: fever cough congestion. COMPARISON: Chest radiograph 12/04/2018. FINDINGS: Lungs: Normal lung volume. No focal consolidation. Stable pulmonary vasculature. Pleura: No pleural effusion or pneumothorax. Heart and Mediastinum: Cardiomediastinal silhouette and great vessels of the thorax are stable. Osseous Structures and Soft Tissues: No acute osseous abnormality. Normal soft tissues. IMPRESSION: No acute cardiopulmonary process. Dictated by: Dictated on workstation # [id number] Dict: 10/29/2258 Trans: 10/29/22957 [facility] [id number] Interpreted by: DARIN CHOI DO Electronically signed by: DARIN CHOI DO 10/29/2258 Counseling-Symptomatic: 3-10 Minutes Follow-up with PCP to: Discuss Further Options Departure Impression Primary Impression: Viral upper respiratory illness Disposition: HOME, SELF-CARE Condition: Stable Departure-Patient Inst. Decision time for Depature: 10:08 Referrals: [facility] [place] NO,LOCAL PHYSICIAN (PCP) Primary Care Physician Patient Instructions: Viral Upper Respiratory Infection, Adult (DC) Add. Discharge Instructions: Drink plenty of fluids to stay well-hydrated. Lljn-szz-goujwgp ibuprofen 3 tablets which is 600 mg every 6 hours with food as needed for sore throat, body aches and any temperature over 100.4. Iylr-tvh-pttpfps generic DayQuil or NyQuil will help with congestion and cough. Or you can get generic Robitussin, take as directed on packaging for cough. Please try and quit smoking. Follow-up with your primary care provider as needed. Return to the emergency department for any new, concerning or emergent complaints. INDRA JO MD Oct 29, 2022 09:27
--- NOTE | 2022-10-29 10:00 | Diagnostic Imaging Report ---
CHEST 1 VIEW, AP/PA ONLY INDICATION: fever cough congestion. COMPARISON: Chest radiograph 12/04/2018. FINDINGS: Lungs: Normal lung volume. No focal consolidation. Stable pulmonary vasculature. Pleura: No pleural effusion or pneumothorax. Heart and Mediastinum: Cardiomediastinal silhouette and great vessels of the thorax are stable. Osseous Structures and Soft Tissues: No acute osseous abnormality. Normal soft tissues. IMPRESSION: No acute cardiopulmonary process. Dictated by: Dictated on workstation # [id number]
[2022-10-29] MEDS ORDERED: guaiFENesin/DM (ROBITUSSIN DM) 10 ML UDC PO STA (10:11)
[2022-10-29 10:26] VITALS: BP 120/94
== END 2022-10-29 10:25 | disposition home or self-care (01) ==
LOC: EDUNIT# 08:44 → ER 08:46
DX: J39.9 Disease of upper respiratory tract, unspecified (principal); R59.1 Generalized enlarged lymph nodes; F17.200 Nicotine dependence, unspecified, uncomplicated; Z28.310 Unvaccinated for COVID-19; Z20.822 Contact with and (suspected) exposure to COVID-19
CPT/HCPCS: 71045; 84703; 87636

== ENCOUNTER 2023-03-29 23:38 | Emergency (ER) | payer MEDICAID ==
[~2023-03-29] VITALS: Ht 157.4 cm; Wt 61.2 kg
--- NOTE | 2023-03-29 23:58 | ED General ---
General Stated Complaint: ANXIETY|CHEST DISCOMFORT Source of Information: Patient, EMS History of Present Illness Date Seen by Provider: Mar 29, 2023 Time Seen by Provider: 23:38 Initial Comments 42 yo female presents with EMS from home with complaints of not feeling right. She admits to increased stress with her job and life. She drank a 6 pack tonight and then went home. She did not feel right and tried to take a shower and go to bed. However, in the shower she got dizzy and lightheaded. She then started feeling her face tingling and that made her more anxious and concerned. She states that she has had anxiety for a long time and she is also drinking alcohol since she was in high school. She felt like this was something different and not just a panic attack or anxiety. She denies drug use other than drinking alcohol. She did receive a total of 1 mg of Ativan by EMS given through the peripheral IV that they initiated. On arrival to the ED she states that she feels like everything is fuzzy and her vision is a little blurred. The symptoms all started after she was given the Ativan. She states that she is also on her period currently. She has also recently had an exposure to COVID. She has multiple teeth that are bad and she has recently had a UTI as well. She has not been on antibiotics because she reports having an allergic reaction to a medicine in the past that prompted her to have to go to [facility] and so she tried to avoid all medicines. She does not follow up with primary care. Timing/Duration: 1-3 Hours Severity: Severe Modifying Factors: worse with Movement Associated Systoms: Chest Pain (tightness); No Cough, No Diaphoresis, No Fever/Chills, No Headaches, No Loss of Appetite; Malaise; No Nausea/Vomiting, No Rash, No Seizure; Shortness of Air; No Syncope; Weakness Allergies and Home Medications Allergies Coded Allergies: ciprofloxacin (Unverified Allergy, Severe, Shortness of Breath, 02/24/19) pt states throat swelling and difficulty breathing when given cipro in [place] amoxicillin (Verified Adverse Reaction, Unknown, Rash, 02/05/22) Patient Home Medication List Home Medication List Reviewed: Yes Azithromycin (Azithromycin) 500 Mg Tablet, 500 MG PO DAILY Prescribed by: BRE CASTANEDA on 03/30/23 0110 Review of Systems Review of Systems Constitutional: No chills, No fever; malaise EENTM: see HPI Respiratory: see HPI Cardiovascular: see HPI Gastrointestinal: diarrhea; No nausea, No vomiting Genitourinary: No dysuria : No LMP: Mar 28, 2023 Musculoskeletal: no symptoms reported Skin: No rash Psychiatric/Neurological: See HPI, Anxiety Past Dzpqmit-Fampvh-Nrylul Hx Patient Social History Tobacco Use?: Yes Tobacco type used: Cigarettes Alcohol Use?: Yes Alcohol type: Beer Alcohol Frequency: Couple times a week Immunizations Up To Date Tetanus Booster (TDap): Unknown First/Initial COVID19 Vaccinat: Not currently vaccinated Second COVID19 Vaccination Adriel: Not currently vaccinated Third COVID19 Vaccination Date: Not currently vaccinated Seasonal Allergies Seasonal Allergies: Yes Past Medical History Surgery/Hospitalization HX: Dental Caries, psych-anxiety and fear of taking medication after having a reaction to an antidepressant. Surgeries: No Respiratory: Yes (asthma as child only) Cardiac: No Neurological: No Reproductive Disorders: No Female Reproductive Disorders: Ovarian Cyst Gastrointestinal: No Musculoskeletal: No Endocrine: No Adrenal Disease Cancer: No Psychosocial: Yes (past hx anxiety with post- depression) Anxiety Integumentary: No Blood Disorders: No Family Medical History Cancer, Diabetes Physical Exam Vital Signs Vital Signs - First Documented 03/29/23 23:43 Temp 36.5 Pulse 110 Resp 18 B/P (MAP) 132/90 (104) Pulse Ox 99 O2 Delivery Room Air Capillary Refill : Height, Weight, BMI Height: 5'2.00" Weight: 120lbs. oz. 54.612262ih; 25.00 BMI Method:Stated General Appearance: Anxious, Thin HEENT: PERRL/EOMI, Moist Mucous Membranes, Other (widespread dental decay) Neck: Full Range of Motion, Normal Inspection, Non Tender, Supple Respiratory: Chest Non Tender, Lungs Clear, Normal Breath Sounds, No Accessory Muscle Use, No Respiratory Distress Cardiovascular: Regular Rate, Rhythm, Normal Peripheral Pulses Gastrointestinal: Normal Bowel Sounds, No Pulsatile Mass, Non Tender, Soft Rectal: Deferred Back: No CVA Tenderness Extremity: Normal Capillary Refill, Normal Inspection, No Pedal Edema Neurologic/Psychiatric: Alert, Oriented x3, 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 as 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, Other (anxious) Skin: Normal Color, Warm/Dry Progress/Results/Core Measures Suspected Sepsis SIRS Temperature: Pulse: Respiratory Rate: Laboratory Tests 03/29/23 23:53: White Blood Count 10.4 Blood Pressure / Mean: Laboratory Tests 03/29/23 23:53: Creatinine 0.70, Platelet Count 253, Total Bilirubin 0.2 Results/Orders Lab Results Laboratory Tests Test 03/29/23 23:53 03/29/23 23:57 03/29/23 23:59 Range/Units White Blood Count 10.4 4.3-11.0 10^3/uL Red Blood Count 4.54 3.80-5.11 10^6/uL Hemoglobin 13.8 11.5-16.0 g/dL Hematocrit 40 35-52 % Mean Corpuscular Volume 88 80-99 fL Mean Corpuscular Hemoglobin 30 25-34 pg Mean Corpuscular Hemoglobin Concent 35 32-36 g/dL Red Cell Distribution Width 12.1 10.0-14.5 % Platelet Count 253 130-400 10^3/uL Mean Platelet Volume 10.1 9.0-12.2 fL Immature Granulocyte % (Auto) 0 % Neutrophils (%) (Auto) 64 42-75 % Lymphocytes (%) (Auto) 26 12-44 % Monocytes (%) (Auto) 6 0-12 % Eosinophils (%) (Auto) 3 0-10 % Basophils (%) (Auto) 1 0-10 % Neutrophils # (Auto) 6.7 1.8-7.8 10^3/uL Lymphocytes # (Auto) 2.7 1.0-4.0 10^3/uL Monocytes # (Auto) 0.6 0.0-1.0 10^3/uL Eosinophils # (Auto) 0.3 0.0-0.3 10^3/uL Basophils # (Auto) 0.1 0.0-0.1 10^3/uL Immature Granulocyte # (Auto) 0.0 0.0-0.1 10^3/uL Sodium Level 132 L 135-145 MMOL/L Potassium Level 4.0 3.6-5.0 MMOL/L Chloride Level 98 98-107 MMOL/L Carbon Dioxide Level 20 L 21-32 MMOL/L Anion Gap 14 5-14 MMOL/L Blood Urea Nitrogen 6 L 7-18 MG/DL Creatinine 0.70 0.60-1.30 MG/DL Estimat Glomerular Filtration Rate 111 BUN/Creatinine Ratio 9 Glucose Level 102 70-105 MG/DL Calcium Level 8.6 8.5-10.1 MG/DL Corrected Calcium 8.4 L 8.5-10.1 MG/DL Magnesium Level 2.4 1.6-2.4 MG/DL Total Bilirubin 0.2 0.1-1.0 MG/DL Aspartate Amino Transf (AST/SGOT) 20 5-34 U/L Alanine Aminotransferase (ALT/SGPT) 14 0-55 U/L Alkaline Phosphatase 62 40-136 U/L Troponin I < 0.30 <0.30 NG/ML Total Protein 7.8 6.4-8.2 GM/DL Albumin 4.3 3.2-4.5 GM/DL Salicylates Level < 0.3 L 5.0-20.0 MG/DL Acetaminophen Level < 10 L 10-30 UG/ML Serum Alcohol 141 H <10 MG/DL SARS-CoV-2 RNA (RT-PCR) Not Detected Not Detecte Urine Color PALE YELLOW Urine Clarity CLEAR Urine pH 6.0 5-9 Urine Specific Weld <=1.005 1.016-1.022 Urine Protein NEGATIVE NEGATIVE Urine Glucose (UA) NEGATIVE NEGATIVE Urine Ketones NEGATIVE NEGATIVE Urine Nitrite NEGATIVE NEGATIVE Urine Bilirubin NEGATIVE NEGATIVE Urine Urobilinogen 0.2 < = 1.0 MG/DL Urine Leukocyte Esterase NEGATIVE NEGATIVE Urine RBC (Auto) TRACE-I H NEGATIVE Urine RBC NONE /HPF Urine WBC RARE /HPF Urine Squamous Epithelial Cells 0-2 /HPF Urine Crystals NONE /LPF Urine Bacteria NEGATIVE /HPF Urine Casts NONE /LPF Urine Mucus NEGATIVE /LPF Urine Culture Indicated NO Urine Opiates Screen NEGATIVE NEGATIVE Urine Oxycodone Screen NEGATIVE NEGATIVE Urine Methadone Screen NEGATIVE NEGATIVE Urine Propoxyphene Screen NEGATIVE NEGATIVE Urine Barbiturates Screen NEGATIVE NEGATIVE Ur Tricyclic Antidepressants Screen NEGATIVE NEGATIVE Urine Phencyclidine Screen NEGATIVE NEGATIVE Urine Amphetamines Screen NEGATIVE NEGATIVE Urine Methamphetamines Screen NEGATIVE NEGATIVE Urine Benzodiazepines Screen NEGATIVE NEGATIVE Urine Cocaine Screen NEGATIVE NEGATIVE Urine Cannabinoids Screen NEGATIVE NEGATIVE My Orders Orders - BRE CASTANEDA MD Ua Culture If Indicated (03/29/23 23:58) Cbc With Automated Diff (03/29/23 23:58) Comprehensive Metabolic Panel (03/29/23 23:58) Alcohol (03/29/23 23:58) Drug Screen Stat (Urine) (03/29/23 23:58) Acetaminophen (03/29/23 23:58) Salicylate (03/29/23 23:58) Ed Iv/Invasive Line Start (03/29/23 23:58) Ns Iv 1000 Ml (Ns Iv 1000 Ml) (03/30/23 00:00) Covid 19 Inhouse Test (03/29/23 23:58) Ct Head Wo (03/29/23 23:58) Urine Bedside (03/29/23 23:58) Magnesium (03/29/23 23:58) Troponin I Fs (03/29/23 23:58) Vital Signs/I&O 03/29/23 03/30/23 23:43 01:11 Temp 36.5 Pulse 110 92 Resp 18 18 B/P (MAP) 132/90 (104) 126/84 Pulse Ox 99 99 O2 Delivery Room Air Room Air 03/30/23 00:00 Intake Total 200 ml Balance 200 ml Capillary Refill : Progress Note #1: Progress Note Differential diagnosis includes anxiety, substance abuse, alcohol intoxication, dehydration, anemia, electrolyte imbalance. Peripheral IV was established by EMS prior to arrival and patient received lorazepam 0.5 mg 2 times prior to arriving to the emergency department. Obtain labs for complete blood count, comprehensive metabolic profile, acetaminophen level, salicylate level, alcohol level, magnesium, troponin. Urinalysis to check for infection as well as bedside and urine drug screen. COVID swab to check for COVID. CT scan of the head without IV contrast with her complaining of feeling dizzy and lightheaded as well as getting facial numbness. All that she is describing sounds more like anxiety but she is worried that something more so doing more extensive testing looking for abnormalities. Administer normal saline 1 L IV fluid bolus from EMS. Progress Note #2: Time: 00:41 Progress Note Complete blood count shows white blood cell count at upper limit of normal at 10.4. Hemoglobin in the normal range at 13.8. Urinalysis was dilute with specific gravity of less than 1.005. There is no leukocyte Estrace, nitrates, white blood cells to indicate an infection. Bedside test was negative. Urine drug screen was negative for all substances checked. COVID swab came back negative as well. Her CT scan of the head without IV contrast on my personal interpretation and review shows no acute process. Progress Note #3: Time: 00:50 Progress Note Comprehensive metabolic profile shows sodium is slightly low at 132. Otherwise she has no acute electrolyte abnormality. Magnesium was slightly elevated at 2.4. Troponin is negative at less than 0.3. Her aspirin and acetaminophen levels were both negative. Her alcohol level was 141. Will try to reassure patient and encourage her to not drink alcohol to excess. Will offer clindamycin for her teeth for infected dental caries. Encourage her t o establish with clinic and follow up for continued care. Patient felt that she would have a panic attack if she tried to take clindamycin as it was a new medicine. She prefers to take azithromycin since she knows she can tolerate that. Prescribe Azithromycin 500 mg po daily x 5 days. She plans to follow up with therapist and clinic and see about getting on Ativan or anxiety medicine to help her more than the alcohol. Diagnostic Imaging Diagonstic Imaging: CT Plain Films/CT/US/NM/MRI: head Comments CT scan of the head without IV contrast Impression No acute hemorrhage, hydrocephalus or mass effect. Read by radiologist Dr. Ajit Ambrose at 0029 and faxed at [phone] Reviewed: Reviewed [place] Study, Reviewed by Me Departure Impression Primary Impression: Dizzy Additional Impressions: Dehydration Alcohol intoxication Qualified Codes: F10.920 - Alcohol use, unspecified with intoxication, uncomplicated Anxiety about health Dental caries Disposition: HOME, SELF-CARE Condition: Stable Departure-Patient Inst. Decision time for Depature: 01:09 Referrals: NO,LOCAL PHYSICIAN (PCP) Primary Care Physician [facility] Patient Instructions: Alcohol Intoxication ED, Dizziness, Adult ED, Dehydration, Adult ED, Anxiety, Adult ED, Tooth Decay ED, Dental Pain ED Add. Discharge Instructions: Try to stay well hydrated with water and electrolyte drinks. Take antibiotic for dental pain and infection. Avoid drinking alcohol. Follow up with clinic and establish care for continued management. [facility] also has a dental clinic in [place] that could see you and help with your dental care as well. Your tests tonight did not show signs of a stroke, heart attack, kidney failure, liver failure, Covid infection, UTI. Scripts Azithromycin (Azithromycin) 500 Mg Tablet 500 MG PO DAILY for Sinusitis/Dental infection for 5 Days, #5 TAB 0 Refills Prov: BRE CASTANEDA MD 03/30/23 Work/School Note: Work Release Form Date Seen in the Emergency Department: Mar 30, 2023 Return to Work: Mar 31, 2023 Restrictions: No Restrictions BRE CASTANEDA MD Mar 29, 2023 23:58
[2023-03-30] MEDS ORDERED: NS IV 1000 ML 1,000 ML IV SCH
[2023-03-30 00:09] LABS: BASOPHILS # (AUTO) 0.1 10^3/uL (0.0-0.1); BASOPHILS % (AUTO) 1 % (0-10); EOSINOPHILS # (AUTO) 0.3 10^3/uL (0.0-0.3); EOSINOPHILS % (AUTO) 3 % (0-10); HEMATOCRIT 40 % (35-52); HEMOGLOBIN 13.8 g/dL (11.5-16.0); LYMPHOCYTES # (AUTO) 2.7 10^3/uL (1.0-4.0); LYMPHOCYTES % (AUTO) 26 % (12-44); MEAN CORPUSCULAR HEMOGLOBIN 30 pg (25-34); MEAN CORPUSCULAR HGB CONC 35 g/dL (32-36); MEAN CORPUSCULAR VOLUME 88 fL (80-99); MEAN PLATELET VOLUME 10.1 fL (9.0-12.2); MONOCYTES # (AUTO) 0.6 10^3/uL (0.0-1.0); MONOCYTES % (AUTO) 6 % (0-12); NEUTROPHILS # (AUTO) 6.7 10^3/uL (1.8-7.8); NEUTROPHILS % (AUTO) 64 % (42-75); PLATELET COUNT 253 10^3/uL (130-400); WHITE BLOOD COUNT 10.4 10^3/uL (4.3-11.0)
[2023-03-30 00:21] LABS: BILIRUBIN,URINE NEGATIVE (NEGATIVE); CLARITY,URINE CLEAR; GLUCOSE, URINE (UA) NEGATIVE (NEGATIVE); KETONES,URINE NEGATIVE (NEGATIVE); LEUKOCYTE ESTERASE ,URINE NEGATIVE (NEGATIVE); NITRITE,URINE NEGATIVE (NEGATIVE); PROTEIN,URINE NEGATIVE (NEGATIVE)
[2023-03-30 00:36] LABS: BACTERIA,URINE NEGATIVE /HPF; COLOR,URINE PALE YELLOW; SQUAMOUS EPITHELIAL CELL,UR 0-2 /HPF; WBC,URINE RARE /HPF
[2023-03-30 00:37] LABS: AMPHETAMINE SCREEN, URINE NEGATIVE (NEGATIVE); BARBITURATE SCREEN URINE NEGATIVE (NEGATIVE); BENZODIAZEPINES SCREEN URINE NEGATIVE (NEGATIVE); CANNABINOID SCREEN, URINE NEGATIVE (NEGATIVE); COCAINE SCREEN URINE NEGATIVE (NEGATIVE); METHADONE STAT NEGATIVE (NEGATIVE); OPIATE SCREEN URINE NEGATIVE (NEGATIVE); OXYCODONE STAT NEGATIVE (NEGATIVE); PROPOXYPHENE STAT NEGATIVE (NEGATIVE); TRICYCLIC ANTIDEPRESSANTS SCRE NEGATIVE (NEGATIVE)
[2023-03-30 00:44] LABS: SODIUM 132 MMOL/L (135-145)
[2023-03-30 00:45] LABS: ALANINE AMINOTRANSFERASE 14 U/L (0-55); ALBUMIN 4.3 GM/DL (3.2-4.5); ALKALINE PHOSPHATASE 62 U/L (40-136); BILIRUBIN,TOTAL 0.2 MG/DL (0.1-1.0); BUN/CREATININE RATIO 9; CALCIUM 8.6 MG/DL (8.5-10.1); CARBON DIOXIDE 20 MMOL/L (21-32); CHLORIDE 98 MMOL/L (98-107); GFR ESTIMATED 111; GLUCOSE 102 MG/DL (70-105); MAGNESIUM 2.4 MG/DL (1.6-2.4); TOTAL PROTEIN 7.8 GM/DL (6.4-8.2)
[2023-03-30 00:46] LABS: ACETAMINOPHEN < 10 UG/ML (10-30); SALICYLATE < 0.3 MG/DL (5.0-20.0)
[2023-03-30] MEDS ORDERED: AZIT500T9 PO (01:10)
[2023-03-30 01:11] VITALS: BP 126/84
--- NOTE | 2023-03-30 06:54 | Diagnostic Imaging Report ---
PROCEDURE: CT head without contrast. TECHNIQUE: Multiple contiguous axial images were obtained through the brain without the use of intravenous contrast. Auto Exposure Controls were utilized during the CT exam to meet ALARA standards for radiation dose reduction. INDICATION: Lightheadedness. No priors. There is no intracranial hemorrhage, hydrocephalus, cerebral edema, mass, mass effect nor evidence for elevated intracerebral pressures. Basilar cisterns patent. No sulcal effacement. Orbits, sinuses and calvarium nonacute. IMPRESSION: Unremarkable CT head. Agree with preliminary Dictated by: Dictated on workstation # [id number]
== END 2023-03-30 01:11 | disposition home or self-care (01) ==
LOC: EDUNIT# 23:38 → ER FS 23:39
DX: E86.0 Dehydration (principal); F10.129 Alcohol abuse with intoxication, unspecified; F41.9 Anxiety disorder, unspecified; K02.9 Dental caries, unspecified; F17.210 Nicotine dependence, cigarettes, uncomplicated; Y90.6 Blood alcohol level of 120-199 mg/100 ml; Z28.310 Unvaccinated for COVID-19; Z88.0 Allergy status to penicillin; Z88.1 Allergy status to other antibiotic agents; Z20.822 Contact with and (suspected) exposure to COVID-19
CPT/HCPCS: 36415; 70450; 80053; 80306; 81000; 83735; 84484; 84703; 85025; 87636; 99284; G0480 ×3; 80320; 80329